=== PATIENT | female | born 1960 | race Caucasian/White ===

== ENCOUNTER 2023-09-27 06:28 | Outpatient (CLI) | payer MEDICAID | END 2023-09-27 06:29 | disposition critical access hospital (66) | LOC: EMS 06:28 | DX: R06.03 Acute respiratory distress (principal); R05.9 Cough, unspecified; R11.2 Nausea with vomiting, unspecified | CPT/HCPCS: A0425; A0427; A0999 ==

== ENCOUNTER 2023-09-27 06:47 | Inpatient (IN) | payer MEDICAID ==
[2023-09-27] MEDS ORDERED: methylPREDNISolone SUCCINATE 125 MG/2 ML VIAL IVP STA (06:55)
[2023-09-27] MEDS ORDERED: IPRATROPIUM/ALBUTEROL 3 ML NEB INH STA (06:55)
[2023-09-27] MEDS ORDERED: cefTRIAXone 1 GM in SODIUM CHLORIDE 0.9% MINIBAG 100 ML IV STA (06:56)
[2023-09-27] MEDS ORDERED: AZITHROMYCIN INJ 500 MG in SODIUM CHLORIDE 0.9% 250 ML IV STA (06:56)
[2023-09-27 07:08] LABS: BASOPHILS % (AUTO) 0.3 %; HCT - HEMATOCRIT 39.2 % (37.0-47.0); HGB - HEMOGLOBIN 12.8 g/dL (12.0-16.0); LYMPHOCYTES # (AUTO) 1.2 10^3/uL (1.5-3.5); LYMPHOCYTES % (AUTO) 7.7 %; MEAN CORPUSCULAR HEMOGLOBIN 27.8 pg (27.0-31.0); MEAN CORPUSCULAR HGB CONC 32.7 g/dL (32.0-36.0); MEAN PLATELET VOLUME 10.6 fL (7.9-10.8); MONOCYTES # (AUTO) 1.1 10^3/uL (0.0-1.0); MONOCYTES % (AUTO) 7.1 %; NEUTROPHILS # (AUTO) 12.8 10^3/uL (1.5-6.6); NEUTROPHILS % (AUTO) 84.4 %; PLT - PLATELET COUNT 240 10^3/uL (130-450); RED BLOOD COUNT 4.61 10^6/uL (4.20-5.40); RED CELL DISTRIBUTION WIDTH 15.1 % (12.0-15.0); WHITE BLOOD COUNT 15.1 x10^3/uL (4.8-10.8)
--- NOTE | 2023-09-27 07:10 | ED Physician Documentation ---
PD HPI DYSPNEA - Stated complaint Stated Complaint: SOA - Chief complaint Chief Complaint: Resp - History obtained from History obtained from: Patient - History of Present Illness Timing - onset: How many weeks ago (1) Timing - onset during: Light activity, Other (coughing) Timing - duration: Weeks (1) Timing - details: Gradual onset, Still present Inciting event(s): URI (Patient states she had had fatigue, muscle aches, chills and cough along with congestion for the past week. She states seen at [facility] and had chest x-ray. She was prescribed albuterol and prednisone without antibiotics. She is not sure if they thought she had pneumonia. Increasing cough.) Improved by: Rest. No: Sitting up Worsened by: Exertion, Coughing Associated symptoms: Fever, Cough, Wheezing. No: Hemoptysis, Bilateral edema Similar symptoms before: Has not had sx before Recently seen: Emergency Dept (she states seen [facility] for this with CXR. [facility] most recent visit record was for back pain with some symptoms of URI/cough on 09/07/23. Sats 98% RA on that report. CXR was done without any pneumonia. Normal CXR by report. Rx Prednisone and Flexeril. no inhaler.) Review of Systems Constitutional: reports: Chills, Myalgias, Fatigue Nose: reports: Congestion Cardiac: denies: Chest pain / pressure, Pedal edema, Calf pain Respiratory: reports: Dyspnea, Cough, Wheezing GI: denies: Abdominal Pain, Vomiting, Diarrhea Skin: denies: Rash Neurologic: reports: Generalized weakness PD PAST MEDICAL HISTORY - Past Medical History Past Medical History: Yes Cardiovascular: None Respiratory: Pneumonia, Other (no asthma nor COPD formal Dx but pt states uses MDI at times. 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 - Present Medications Home Medications: Ambulatory Orders Medication Instructions Recorded Confirmed Fluoxetine HCl [Prozac] 40 mg PO DAILY 09/27/23 09/27/23 - Allergies Allergies/Adverse Reactions: Allergies Allergy/AdvReac Type Severity Reaction Status Date / Time No Known Drug Allergies Allergy Verified 09/27/23 06:59 - Social History Does the pt smoke?: No Smoking Status: Never smoker Does the pt drink ETOH?: No Does the pt have substance abuse?: Yes Substance Use and Type: Marijuana - Immunizations Immunizations are current?: Yes - POLST Patient has POLST: No PD ED PE NORMAL - Vitals Vital signs reviewed: Yes - General General: Alert and oriented X 3, Well developed/nourished, Other (some increased work of breathing. Partial sentence dyspnea. ) - HEENT HEENT: Pharynx benign - Neck Neck: Supple, no meningeal sign, No adenopathy - Cardiac Cardiac: RRR (regular but tachycardic.) - Respiratory Respiratory: No: Clear bilaterally (diffuse wheezing and prolonged exp phase. ) - Abdomen Abdomen: Soft, Non tender - Back Back: No CVA TTP - Derm Derm: Normal color, Warm and dry - Extremities Extremities: Normal ROM s pain, No edema, No calf tenderness / cord - Neuro Neuro: Alert and oriented X 3, No motor deficit, Normal speech Results - Vitals Vitals: Vital Signs - 24 hr 09/27/23 09/27/23 09/27/23 06:47 07:21 07:30 Temperature 36.3 C L Heart Rate 101 H 90 105 H Respiratory 24 18 25 H Rate Blood Pressure 144/67 H 100/83 H 130/72 O2 Saturation 96 97 89 L If not protocol : Oxygen Flow, liters/minute 09/27/23 09/27/23 09/27/23 08:00 08:30 09:11 Temperature 36.5 C Heart Rate 90 87 87 Respiratory 25 H 18 18 Rate Blood Pressure 130/72 129/64 144/59 H O2 Saturation 86 L 95 97 If not protocol 2 4 : Oxygen Flow, liters/minute Oxygen O2 Source Nasal cannula Oxygen Flow Rate 4 - Labs Labs: Laboratory Tests 09/27/23 09/27/23 09/27/23 06:55 06:55 06:55 WBC 15.1 H RBC 4.61 Hgb 12.8 Hct 39.2 MCV 85.0 MCH 27.8 MCHC 32.7 RDW 15.1 H Plt Count 240 MPV 10.6 Neut # (Auto) 12.8 H Lymph # (Auto) 1.2 L [place] # (Auto) 1.1 H Eos # (Auto) 0.0 Baso # (Auto) 0.0 Absolute Nucleated RBC 0.00 Nucleated RBC % 0.0 PT 12.0 INR 1.1 Sodium 139 Potassium 3.2 L Chloride 103 Carbon Dioxide 26 Anion Gap 10.0 BUN 16 Creatinine 0.7 Estimated GFR (MDRD) 85 L Glucose 119 H Lactic Acid Calcium 9.8 Magnesium 1.6 L Total Bilirubin 0.5 AST 11 ALT 15 Alkaline Phosphatase 73 Troponin I High Sens 5.9 B-Natriuretic Peptide Total Protein 6.7 Albumin 3.9 Globulin 2.8 Albumin/Globulin Ratio 1.4 Nasal Adenovirus (PCR) Nasal B. parapertussis DNA (PCR) Nasal Coronavir 229E PCR Nasal Coronavir HKU1 PCR Nasal Coronavir NL63 PCR Nasal Coronavir OC43 PCR Nasal Enterovir/Rhinovir PCR Nasal Influenza B PCR Nasal Influenza A PCR Nasal Parainfluen 1 PCR Nasal Parainfluen 2 PCR Nasal Parainfluen 3 PCR Nasal Parainfluen 4 PCR Nasal RSV (PCR) Nasal B.pertussis DNA PCR Nasal C.pneumoniae (PCR) Jose Rafael Human Metapneumo PCR Nasal M.pneumoniae (PCR) Nasal SARS-CoV-2 (PCR) 09/27/23 09/27/23 09/27/23 06:55 07:00 07:40 WBC RBC Hgb Hct MCV MCH MCHC RDW Plt Count MPV Neut # (Auto) Lymph # (Auto) [place] # (Auto) Eos # (Auto) Baso # (Auto) Absolute Nucleated RBC Nucleated RBC % PT INR Sodium Potassium Chloride Carbon Dioxide Anion Gap BUN Creatinine Estimated GFR (MDRD) Glucose Lactic Acid 1.7 Calcium Magnesium Total Bilirubin AST ALT Alkaline Phosphatase Troponin I High Sens B-Natriuretic Peptide 87 Total Protein Albumin Globulin Albumin/Globulin Ratio Nasal Adenovirus (PCR) NOT DETECTED Nasal B. parapertussis DNA (PCR) NOT DETECTED Nasal Coronavir 229E PCR NOT DETECTED Nasal Coronavir HKU1 PCR NOT DETECTED Nasal Coronavir NL63 PCR NOT DETECTED Nasal Coronavir OC43 PCR NOT DETECTED Nasal Enterovir/Rhinovir PCR NOT DETECTED Nasal Influenza B PCR NOT DETECTED Nasal Influenza A PCR NOT DETECTED Nasal Parainfluen 1 PCR NOT DETECTED Nasal Parainfluen 2 PCR NOT DETECTED Nasal Parainfluen 3 PCR NOT DETECTED Nasal Parainfluen 4 PCR NOT DETECTED Nasal RSV (PCR) NOT DETECTED Nasal B.pertussis DNA PCR NOT DETECTED Nasal C.pneumoniae (PCR) NOT DETECTED Jose Rafael Human Metapneumo PCR NOT DETECTED Nasal M.pneumoniae (PCR) NOT DETECTED Nasal SARS-CoV-2 (PCR) NOT DETECTED - Rads (name of study) chest xray Relevant Findings:: Prelim report reviewed, EMP independent interpretation of test (platelike infiltrate left fissure, adn rounded infiltrate right middle lobe. No effusions. No PTX. ) chest CT Relevant Findings:: Prelim report reviewed, EMP independent interpretation of test (rounded pneumonia right , and linear infiltrate left. No mass noted per se. No abscess. followup in few months for resolution recommended. ) PD Medical Decision Making - ED course Complexity details: reviewed results (infiltrates right and left, with rounded appearance right. New since 09/07/23 by CXR report from then. Presume not a mass, but can get CT to better eval and exclude abscess/etc. ), re-evaluated patient (After nebulizer treatments, the patient is breathing more comfortably. She is able to talk in sentences. There is still some expiratory wheezing diffusely. Some coarse sounds right lung heard now 2. On room air she is still 88 to 89%. Adequate on 2 L nasal cannula.), considered differential (Presents with progressively worsening dyspnea cough and general illness feeling. Pr esumed upper respiratory infection now likely developing into pneumonia. Wheezing and hypoxic on presentation.), d/w patient ED course: Having cough and trouble breathing increasing over 2 and half to 3 weeks. Negative chest x-ray on 09/07/23. Has had increased cough with trouble breathing over the last week in particular much more the last couple of days. Hypoxic on presentation and wheezy with difficulty breathing. The breathing pattern has improved with nebulizer treatments. Pneumonia noted on chest x-ray and CT scan showed infiltrates without masses or abscess. Started on antibiotics for pneumonia. She was given Zithromax and Rocephin. The patient remained hypoxic on room air after the initial treatments and was 88%. She is sufficiently oxygenated on just 2 L nasal cannula. I talked with the hospitalist who agrees to place the patient in the hospital. We did obtain ER report from [facility] in [place] from 09/07/2023 and I referenced that for vital signs which showed 98% sats and a normal heart rate and a documented of clear chest x-ray. Departure - Departure Disposition: [facility] DC/Xfer Clinical Impression: Acute pneumonia, Hypoxia, Dyspnea, Exacerbation of reactive airway disease Condition: Stable Record reviewed to determine appropriate education?: Yes Forms: PCP List
[2023-09-27 07:15] LABS: INR 1.1 (0.8-1.2)
[2023-09-27 07:22] LABS: ALBUMIN 3.9 g/dL (3.2-5.5); ALBUMIN/GLOBULIN RATIO 1.4 (1.0-2.2); BILIRUBIN,TOTAL 0.5 mg/dL (0.2-1.0); CALCIUM 9.8 mg/dL (8.5-10.3); CREATININE 0.7 mg/dL (0.6-1.3); MAGNESIUM 1.6 mg/dL (1.7-2.3); POTASSIUM 3.2 mmol/L (3.5-4.5); TOTAL PROTEIN 6.7 g/dL (6.4-8.9); TROPONIN I HIGH SENSITIVITY 5.9 ng/L (2.3-14.8)
[2023-09-27] MEDS ORDERED: ONDANSETRON 4 MG/2 ML VIAL IVP STA (07:50)
[2023-09-27] MEDS ORDERED: fentaNYL 100 MCG/2 ML VIAL IVP STA (07:50)
[2023-09-27 07:58] LABS: B. PARAPERTUSSIS- RESP PCR PAN NOT DETECTED; B. PERTUSSIS- RESP PCR PANEL NOT DETECTED; C. PNEUMONIAE- RESP PCR PANEL NOT DETECTED; CORONAVIRUS 229E-RESP PCR NOT DETECTED; CORONAVIRUS HKU1-RESP PCR NOT DETECTED; CORONAVIRUS NL63-RESP PCR NOT DETECTED; CORONAVIRUS OC43-RESP PCR NOT DETECTED; HUMAN METAPNEUMOVIRUS NOT DETECTED; INFLUENZA A- RESP PCR PANEL NOT DETECTED; INFLUENZA B - RESP PCR PANEL NOT DETECTED; M. PNEUMONIAE- RESP PCR PANEL NOT DETECTED; PARAINFLUENZA VIRUS 1 NOT DETECTED; PARAINFLUENZA VIRUS 2 NOT DETECTED; PARAINFLUENZA VIRUS 3 NOT DETECTED; PARAINFLUENZA VIRUS 4 NOT DETECTED; RHINOVIRUS/ENTEROVIRUS NOT DETECTED; RSV- RESP PCR PANEL NOT DETECTED; SARS-CoV-2 -RESP PCR PANEL NOT DETECTED
[2023-09-27] MEDS: KETOROLAC 15 MG/ML VIAL IVP PRN (07:59)
--- NOTE | 2023-09-27 08:12 | XRAY Report ---
PROCEDURE: Chest 1 View X-Ray INDICATIONS: dyspnea, wheezing, hypoxia TECHNIQUE: One view of the chest was acquired. COMPARISON: None. FINDINGS: Surgical changes and devices: None. Lungs and pleura: No pleural effusions or pneumothorax. There is a density in the right perihilar re gion measuring 5.4 cm which is highly suspicious for a bronchogenic malignancy. Also possible is roun d pneumonia. Mediastinum: Mediastinal contours appear normal. Heart size is normal. Bones and chest wall: No suspicious bony lesions. Overlying soft tissues appear unremarkable. IMPRESSION: Probable 5.4 cm maximum diameter right perihilar mass. Also possible is a rounded pneumonia. Recommend CT chest with contrast versus close follow-up with serial plain films. Findings are concordant with preliminary interpretation provided by [facility]. Reviewed by: Pedro Pablo Carbone MD on 09/27/2023 8:10 AM [facility] Approved by: Pedro Pablo Carbone MD on 09/27/2023 8:10 AM [facility] Station ID: [id number]
[2023-09-27] MEDS ORDERED: ALBUTEROL NEB 2.5 MG/3 ML INH STA (08:19)
[2023-09-27] MEDS ORDERED: POTASSIUM BICARB 25 MEQ TABLET PO STA (09:11)
[2023-09-27] MEDS ORDERED: MAGNESIUM OXIDE 400 MG TABLET PO STA (09:11)
[2023-09-27] MEDS ORDERED: SODIUM CHLORIDE FLUSH 0.9% 10 ML SYRINGE IVP PRN (09:22)
--- NOTE | 2023-09-27 09:22 | CT Report ---
PROCEDURE: CHEST W INDICATIONS: pneumonia vs mass on CXR CONTRAST: 100ml omni 300 TECHNIQUE: After the administration of intravenous contrast, 1 mm axial images were acquired from the pulmonary apices through the posterior costophrenic angles. Axial 5 mm soft tissue kernel reconstructions were performed as well as 8 mm axial MIP and coronal and sagittal 5 mm reformations. For radiation dose reduction, the following was used: automated exposure control, adjustment of mA and/or kV according to patient size. COMPARISON: Plain films dated 09/27/2023 FINDINGS: Image quality: Excellent. Lungs and pleura: Severe patchy airspace opacity within the superior segment right lower lobe, as wel l as the medial basilar aspect of the right lower lobe. Moderate airspace opacity within the left upp er lobe posteriorly as well as the perihilar aspect of the left lower lobe. No pleural effusions. No pneumothorax. No suspicious pulmonary nodules which require follow up. Mediastinum: Heart size is normal. Calcification of the coronary vasculature is present. No pericardi al effusion. No large vessel abnormality. Right infrahilar adenopathy measuring 21 mm short axis. 10 mm short axis subcarinal adenopathy. Chest wall and lower neck: Thyroid is unremarkable. No axillary or supraclavicular adenopathy by size . Bones: No aggressive osseous abnormality. Upper Abdomen: Unremarkable. IMPRESSION: 1. Bilateral pneumonia with presumably reactive mediastinal and hilar adenopathy. Follow-up IV contra st-enhanced chest CT in 3 months is recommended to ensure resolution and to exclude underlying neopla sm. 2. Coronary artery disease. Reviewed by: Theodora Valencia MD on 09/27/2023 9:20 AM [facility] Approved by: Theodora Valencia MD on 09/27/2023 9:20 AM [facility] Station ID: [id number]
[2023-09-27] MEDS ORDERED: IPRATROPIUM/ALBUTEROL 3 ML NEB INH PRN (09:24)
--- NOTE | 2023-09-27 09:31 | HISTORY & PHYSICAL EXAMINATION ---
Chief Complaint - Chief Complaint Chief Complaint: Cough, severe shortness of breath, chest congestion History of Present Illness - Admitted From Admitted From:: Home - History Obtained From Records Reviewed: [facility] History obtained from: Patient Exam Limitations: None - History of Present Illness HPI Comment/Other: 62-year-old who presented to the emergency room with cough, fatigue, muscle aches, chills and sinus and chest congestion for over a week. She said that she usually does not have asthma. But the cough is associated with wheezing. Every time she laid down to go to bed at night, the coughing spasms be so severe. She started getting sharp stabbing chest pain that started in the front of her chest and radiated straight through to her back. They were fleeting, infrequent but incredibly uncomfortable so she started sleeping upright. She was seen at [facility] when it first started and had a chest x-ray. She was given albuterol and prednisone without antibiotics. Chest x-ray was read as clear. She now presents back to our emergency room because she is not getting any better. The coughing continues with minimal activity inciting it. She continues to have intermittent uncontrollable cough. Sinus and chest congestion. Profound fatigue. Wheezing.No hemoptysis. No leg edema. Our emergency room provider saw her and she was afebrile, slightly tachycardic at 101, and requiring 2 L nasal cannula to maintain an O2 sat. Exam was mainly positive for increased work of breathing and partial sentence dyspnea. She had diffuse wheezing and prolonged and expiratory phase. Her CMP was normal except for a random glucose of 119, and potassium was 3.2. Her lactic acid was normal at 1.7. Her CBC had an elevated white cell count of 15.1 (in the context of prednisone being given and her infection). PCR panel for viruses was negative. Initial chest x-ray read as a perihilar infiltrate. Possible malignancy. As such a CT was done and she has severe patchy airspace opacity within the s uperior segment of the right lower lobe as well as the medial basilar aspect of the right lower lobe. Moderate airspace opacity within the left upper lobe posteriorly and perihilar aspect of the left lower lobe. No effusions. No pneumothorax. She has right infrahilar adenopathy. Coronary calcification. In the ER treatment has consisted of DuoNeb, azithromycin, ceftriaxone. Her respiratory rate has gone down to 18 from 25. Her O2 sat is still 97% with 4 L. Her heart rate is 87. After discussion with the ER provider, I am now admitting the patient to inpatient status. It is doubtful that she will recover in 1 midnight. In meeting the patient to do a review of systems the following were discussed: When 2019 came around, she just had a lot of depression. She gained a lot of weight. She was swimming every day in [employer] and then just stopped going. Not because of COVID but because she lost the energy and desire to do so. She is deaf in her left ear. Lifelong swimmer [place] the [place] [facility] and she was getting chronic ear infections so her left ear is affected. She does not have allergies, sinusitis. She has normal vision loss of aging. No glaucoma. She denies any problems with swallowing, teeth problems She has no history of asthma, coughing like this. She was diagnosed with severe obstructive sleep apnea. On a scale of 1-10, "I am a 15". She still does not have her sleep mass. That was identified recently. Positive stabbing chest pain, positive orthopnea, no leg edema. Severe dyspnea on exertion all started this last week. No phlegm production. No history of ulcers, indigestion, diarrhea Chronic sciatica. Right leg shakes sometimes. Knees and hips just ache. No new skin lesions. No history of skin cancer Denies polydipsia, polyuria, polyphagia. Depression is a problem. Much worse in 2020 but seems to be better this year Starting to lose her memory. 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 She worries about that because mom has dementia. But no history of seizures, syncope, focal neurological deficits She says this is the first time she is ever been hospitalized for severe illness. She was hospitalized for couple of days for sciatica years ago. She was hospitalized for the of her 3 children. But she has never been hospitalized for a medical reason like this. History - Past Medical History Cardiovascular: reports: None Respiratory: reports: Pneumonia, Other (no asthma nor COPD. 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 Mom has dementia and is cared for by her sister. Dad is healthy. 1 sister completely healthy, 1 brother morbidly overweight at over 430 pounds of complications of diabetes, obesity, bladder cancer, etc. 3 children. 1 daughter has syringomyelia. Was in a wheelchair and has been able to walk after 3 years of being wheelchair confined. On a new [facility] Living arrangement: At home Living Situation: With family Social History Notes: She moved to [facility] from [place] in 2017. She came here to help her daughter. Daughter was diagnosed with a syringomyelia and needed help taking care of her kids. She is continue to live here. She lives in her own home and now son and [id number] live with her. They have 2 kids. 1 kid is autistic. She never smoked tobacco. But does smoke weed on a daily basis. She does not like to drink because it just makes her nauseated and puke within 1 drink. 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 No other recreational substance abuse. - Substance History Use: Uses substance without health or social issues: Cannabis - POLST Patient has POLST: No Meds/Allgy - Home Medications Home Medications: Ambulatory Orders Medication Instructions Recorded Confirmed Fluoxetine HCl [Prozac] 40 mg PO DAILY 09/27/23 09/27/23 - Allergies Allergies/Adverse Reactions: Allergies Allergy/AdvReac Type Severity Reaction Status Date / Time No Known Drug Allergies Allergy Verified 09/27/23 06:59 Review of Systems - Other Findings Other Findings: 13 point review of systems in HPI Prior Level of Functionality: Until this illness this week, she is completely independent with activities of daily living. Cleans house, does laundry, cooks, grocery shops, drives a car, and helps both her son and daughter with their kids, her grandkids. Exam - Vital Signs Reviewed Vital Signs: Yes Vital Signs: Vital Signs x48h Temp Pulse Resp BP Pulse Ox O2 Flow Rate 09/27/23 09:11 36.5 C 87 18 144/59 H 97 4 09/27/23 08:30 87 18 129/64 95 09/27/23 08:00 90 25 H 130/72 86 L 2 09/27/23 07:30 105 H 25 H 130/72 89 L 09/27/23 07:21 90 18 100/83 H 97 09/27/23 06:47 36.3 C L 101 H 24 144/67 H 96 - Physical Exam General Appearance: positive: Moderate distress (From cough, wheezing once I wa ke her up. It took me 2 shakes of the shoulder to wake her up), Other (Morbidly overweight white female who looks older than stated age. Markedly fatigued, nasal congestion, sleeping upright in the chair in her room. Does not want to lay in bed.) Eyes Bilateral: positive: PERRL, EOMI ENT: positive: Pharynx nml Neck: positive: No JVD. negative: Stiff neck Respiratory: positive: Wheezes (Bilaterally in all lung flores. No use of accessory muscles. No sternocleidomastoid emphasis), Rhonchi (Congested cough. Nasal voice) Cardiovascular: positive: Regular rate & rhythm Peripheral Pulses: positive: 1+ Abdomen: positive: Non-tender, Nml bowel sounds, No distention, Other (Unable to assess for organomegaly due to large pannus) Skin: positive: Warm, Dry Extremities: positive: Full ROM, No pedal edema Neurologic/Psychiatric: positive: Oriented x3, CN's nml (2-12), Motor nml Conclusion/Plan - Problem List (1) Multifocal pneumonia Conclusion/Plan: This is a patient has obstructive sleep apnea, fatigue for 3 years now, and I wonder if she could be aspirating. However, this is the first time she is ever been sick like this. No history of asthma. Her PCR panel is negative. CT confirms severe patchy airspace opacity within the superior segments of the rig ht lower lobe as well as medial basilar aspect of the right lower lobe. Moderate airspace opacity within the left upper lobe posteriorly as well as the perihilar aspect of the left lower lobe. : Inpatient status Blood cultures have already been done in the emergency room I have ordered mycoplasma titers Rocephin and azithromycin have been dosed in the ER and I will resume azithromycin for 2 more doses daily. I will resume Rocephin for 4 more doses daily. If she does not clinically improve within the next 24 to 48 hours, I would suggest adding either clindamycin or Flagyl. (2) Hypoxia Conclusion/Plan: Significant airspace disease. She is morbidly obese, today entry. She definitely gives a history of an acute episode resulting in this asthma, chest congestion and a picture of multifocal pneumonia. I would also suggest a CT of the chest with angiogram in the next 24 to 48 hours if she does not improve. In the meantime she will get nasal cannula oxygen. She is a full code. Would need to go to the ICU for BiPAP if she deteriorates further (3) Exacerbation of reactive airway disease Conclusion/Plan: She does not have a history of asthma. She says she is never wheezed like this before. She is a non-smoker. Mycoplasma is associated with wheezing. Aspiration is associated with wheezing. Congestive heart failure is associated with wheezing. Certain medications are associated with wheezing. RSV is associated with wheezing but she does not have a positive viral panel. Plan: Continue to treat with DuoNeb on a 4 times daily schedule Albuterol every 2 as needed Solu-Medrol Robitussin AC as needed Qualifiers: Asthma severity: severe (4) Obstructive sleep apnea Conclusion/Plan: She does not have her mask yet. Currently sleeping upright in the room here. I would suggest that she elevate her legs while sleeping in the reclining chair. There is no mass to bring her from home. If she decompensates severely, ICU wi th BiPAP would be in order or trilogy. (5) Morbid obesity Conclusion/Plan: Associated with obstructive sleep apnea, depression, lethargy and even more weight gain. I told her that the next time she sees her primary care provider with [facility], to consider SLG P2 inhibitor. (6) Memory change Conclusion/Plan: A lot of this started in 2020. When she became sedentary, depressed. The argument could be made that she became depressed and as such the cascade of events of weight gain, less exercise, obstructive sleep apnea all started. Or the obstructive sleep apnea could have caused the lethargy, and the weight gain. In any case this was associated with memory loss. I am hoping that if she can get her obstructive sleep apnea under control, weight loss goals achieved, there is some of this lethargy and memory fog can be alleviated (7) Hypokalemia Conclusion/Plan: She was given potassium and magnesium supplementation in the ER. Will check levels tomorrow. - Lab Results Lab results reviewed: Yes Fish Bones: 09/27/23 06:55 09/27/23 06:55 - Diagnostic Imaging Results Diagnostic Imaging Results: positive: Final report reviewed - EKG Results EKG Interpreted Independently: No Core Measures - Anticipated LOS I expect patient to be DC'd or transferred within 96 hours.: Yes - DVT/VTE - Prophylaxis VTE/DVT Prophylaxis med ordered at admit?: Yes
[2023-09-27] MEDS: FLUoxetine 10 MG CAPSULE PO SCH (10:57)
[2023-09-27] MEDS: SODIUM CHLORIDE 0.9% 1,000 ML IV SCH ×2 (10:57→21:37)
[2023-09-27] MEDS: ENOXAPARIN 40 MG/0.4 ML SYRINGE SUBQ SCH (10:57)
--- NOTE | 2023-09-27 11:15 | PHARMACY PROGRESS NOTE ---
- Best Possible Medication History Admit Date and Time: 09/27/23921 Processed by: Pharmacy Medication History completed: Yes Patient Interview: Completed (Willa Patel, [employer]) Secondary Source(s): Insurance records As the person ultimately responsible for medication therapy, providers are able to order a medication from an existing home medication list in [facility] via the "Reconcile Routine" prior to Confirmation of that medication by manager technical support. Such practice is discouraged except when the physician, in their clinical judgment, deems that a medical need exists for a medication without regard to previous use.
[2023-09-27] MEDS ORDERED: iohexoL-300 100 ML VIAL IVP ONE (11:23)
[2023-09-27] MEDS: SACCHAROMYCES BOULARDII 250 MG CAPSULE PO SCH (16:53)
[2023-09-27] MEDS: SODIUM CHLORIDE FLUSH 0.9% 10 ML SYRINGE IVP SCH (16:54)
[2023-09-27] MEDS ORDERED: ALBUTEROL NEB 2.5 MG/3 ML INH PRN (19:13)
[2023-09-27] MEDS: methylPREDNISolone SUCCINATE 40 MG/ML VIAL IVP SCH (21:37)
[2023-09-28] MEDS: ACETAMINOPHEN 325 MG TABLET PO PRN ×3 (00:04→20:20)
[2023-09-28] MEDS: SODIUM CHLORIDE FLUSH 0.9% 10 ML SYRINGE IVP SCH ×3 (00:04→16:24)
[2023-09-28] MEDS: ONDANSETRON ODT 4 MG TABLET TL PRN ×3 (00:10→22:30)
[2023-09-28] MEDS: guaiFENesin/CODEINE 5 ML UDC PO PRN ×2 (05:05→20:20)
[2023-09-28] MEDS: KETOROLAC 15 MG/ML VIAL IVP PRN ×2 (05:06→16:24)
[2023-09-28 05:26] LABS: BASOPHILS % (AUTO) 0.3 %; HCT - HEMATOCRIT 36.9 % (37.0-47.0); HGB - HEMOGLOBIN 11.6 g/dL (12.0-16.0); LYMPHOCYTES # (AUTO) 0.9 10^3/uL (1.5-3.5); LYMPHOCYTES % (AUTO) 5.8 %; MEAN CORPUSCULAR HEMOGLOBIN 27.4 pg (27.0-31.0); MEAN CORPUSCULAR HGB CONC 31.4 g/dL (32.0-36.0); MEAN PLATELET VOLUME 11.6 fL (7.9-10.8); NEUTROPHILS # (AUTO) 13.9 10^3/uL (1.5-6.6); NEUTROPHILS % (AUTO) 87.6 %; PLT - PLATELET COUNT 234 10^3/uL (130-450); RED BLOOD COUNT 4.24 10^6/uL (4.20-5.40); RED CELL DISTRIBUTION WIDTH 15.4 % (12.0-15.0); WHITE BLOOD COUNT 15.8 x10^3/uL (4.8-10.8)
[2023-09-28 05:39] LABS: CALCIUM 9.6 mg/dL (8.5-10.3); CREATININE 0.6 mg/dL (0.6-1.3); MAGNESIUM 2.1 mg/dL (1.7-2.3); POTASSIUM 4.6 mmol/L (3.5-4.5)
[2023-09-28] MEDS: methylPREDNISolone SUCCINATE 40 MG/ML VIAL IVP SCH ×2 (06:41→14:18)
[2023-09-28] MEDS: IPRATROPIUM/ALBUTEROL 3 ML NEB INH SCH ×4 (06:49→19:24)
[2023-09-28] MEDS: SACCHAROMYCES BOULARDII 250 MG CAPSULE PO SCH ×2 (07:45→16:24)
[2023-09-28] MEDS: FLUoxetine 10 MG CAPSULE PO SCH (08:24)
[2023-09-28] MEDS: cefTRIAXone 1 GM in SODIUM CHLORIDE 0.9% MINIBAG 100 ML IV SCH (08:24)
[2023-09-28] MEDS: ENOXAPARIN 40 MG/0.4 ML SYRINGE SUBQ SCH (08:26)
[2023-09-28] MEDS: AZITHROMYCIN INJ 500 MG in SODIUM CHLORIDE 0.9% 250 ML IV SCH (10:26)
[2023-09-28] MEDS: oxyCODONE 5 MG TABLET PO PRN ×2 (11:52→22:42)
--- NOTE | 2023-09-28 19:08 | PROVIDER PROGRESS NOTE ---
Assessment/Plan - Problem List (1) Multifocal pneumonia Assessment/Plan: This is a patient has obstructive sleep apnea, fatigue for 3 years now, and we wonder if she could be aspirating. However, this is the first time she has ever been sick like this. No history of asthma. Her PCR panel is negative. CT confirms severe patchy airspace opacity within the superior segments of the right lower lobe as well as medial basilar aspect of the right lower lobe, moderate airspace opacity within the left upper lobe posteriorly as well as the perihilar aspect of the left lower lobe. Plan Cont Rocephin (5 day course planned) and Azithromycin (1500mg total dose) If she does not clinically improve within the next 24 to 48 hours, sherrill add either clindamycin or Flagyl to cover anaerobes from aspiration. (2) Acute resp failure with hypoxia Conclusion/Plan: Significant airspace disease seen on imaging. She definitely gives a history of an acute episode resulting in an asthmatic exacerbation, chest congestion and a picture of multifocal pneumonia. Plan: Cont suppl nasal cannula oxygen. She would need to go to the ICU for BiPAP if she deteriorates (3) Exacerbation of reactive airway disease Conclusion/Plan: She does not have a history of asthma. But her brother and her sister have diagnosed asthma. She says she has never wheezed like this before. She is a non- smoker. Mycoplasma is associated with wheezing. Aspiration is associated with wheezing. Congestive heart failure is associated with wheezing. Certain medi cations are associated with wheezing. RSV is associated with wheezing but she does not have a positive viral panel. Plan: Continue to treat with DuoNeb on a 4 times daily schedule Albuterol every 2h as needed Solu-Medrol iv to continue Robitussin AC as needed (4) Obstructive sleep apnea Conclusion/Plan: SCOTT was recently diagnosed and she does not have her mask yet. She is currently sleeping upright in the room here and leg elevation if sleeping in the recliner, was advised. If she decompensates severely, ICU with BiPAP would be in order or trilogy. (5) Obesity Conclusion/Plan: Her BMI is 33.7. This can be adding to her obstructive sleep apnea, depression, lethargy and even more weight gain. I told her that the next time she sees her primary care provider with [place] [facility], to consider SLG P2 inhibitor, to help with wt loss. (6) Memory change Conclusion/Plan: A lot of this started in 2019, when she became sedentary, depressed. Possibly she became depressed and as such the cascade of events followed of weight gain, less exercise, and obstructive sleep apnea developed. Or the obstructive sleep apnea could have caused the lethargy, and the weight gain. In any case this was associated with memory loss. I am hoping that if she can get her obstructive sleep apnea under control, weight loss goals achieved, there is some of this lethargy and memory fog can be alleviated (7) Hypokalemia Conclusion/Plan: She was given potassium and magnesium supplementation in the ER. Will follow levels. - Current Meds Current Meds: Current Medications Generic Name Dose Route Start Last Admin Trade Name Freq PRN Reason Stop Dose Admin Acetaminophen 650 mg 09/27/23 09:22 09/28/23 05:06 Acetaminophen 325 Mg Tablet PO 650 mg Q4HR PRN Administration Pain 1 to 4, or Fever Albuterol/Ipratropium 3 ml 09/28/23 07:00 09/28/23 16:34 Ipratropium/Albuterol 3 Ml Neb INH Not Given RTQID HARSHA Enoxaparin Sodium 40 mg 09/27/23 10:00 09/28/23 08:26 Enoxaparin 40 Mg/0.4 Ml Syringe SUBQ 40 mg DAILY HARSHA Administration Fluoxetine HCl 40 mg 09/27/23 10:00 09/28/23 08:24 Fluoxetine 10 Mg Capsule PO 40 mg DAILY HARSHA Administration Guaifenesin/Codeine Phosphate 5 ml 09/27/23 19:12 09/28/23 05:05 Guaifenesin/Codeine 5 Ml Udc PO 5 ml Q6HR PRN Administration Cough Azithromycin 500 mg/ Sodium 250 mls @ 250 mls/hr 09/28/23 09:00 09/28/23 11:30 Chloride IV 09/29/23 09:59 Infused DAILY HARSHA Infusion Ceftriaxone Sodium 1 gm/ 100 mls @ 200 mls/hr 09/28/23 09:00 09/28/23 08:55 Sodium Chloride IV 10/01/23 09:29 Infused DAILY HARSHA Infusion Ketorolac Tromethamine 15 mg 09/27/23 07:50 09/28/23 16:24 Ketorolac 15 Mg/Ml Vial IVP 10/02/23 07:49 15 mg Q6HR PRN Administration Severe Pain (Level 7-10) Ondansetron HCl 4 mg 09/27/23 09:22 09/28/23 07:43 Ondansetron Odt 4 Mg Tablet TL 4 mg Q6HR PRN Administration Nausea / Vomiting Oxycodone HCl 5 mg 09/27/23 09:22 09/28/23 11:52 Oxycodone 5 Mg Tablet PO 5 mg Q4HR PRN Administration Pain 5 to 7 Saccharomyces Boulardii 250 mg 09/27/23 17:00 09/28/23 16:24 Saccharomyces Boulardii 250 Mg Capsule PO 250 mg BIDWM HARSHA Administration Sodium Chloride 10 ml 09/27/23 17:00 09/28/23 16:24 Sodium Chloride Flush 0.9% 10 Ml Syringe IVP 10 ml 0100,0900,1700 HARSHA Administration - Lab Result Fish Bone Diagrams: 09/30/23 05:30 09/30/23 05:30 Subjective - Subjective Patient Reports: Feeling Better (She is not as SOB as at adm, but still has a wet non-productive cough and has wheezing), Shortness of Breath Objective Vital Signs: Vital Signs - 24 hr 09/27/23 09/28/23 09/28/23 21:00 00:00 06:52 Temperature 36.7 C Heart Rate 63 Heart Rate [ 73 Brachial] Respiratory 18 13 Rate Blood Pressure 145/84 H [Left Brachial artery] Blood Pressure [Right Brachial artery] O2 Saturation 97 If not protocol 4 4 : Oxygen Flow, liters/minute 09/28/23 09/28/23 09/28/23 07:32 09:15 10:35 Temperature 36.3 C L Heart Rate Heart Rate [ 62 63 Brachial] Respiratory 20 Rate Blood Pressure 171/91 H 138/73 H [Left Brachial artery] Blood Pressure [Right Brachial artery] O2 Saturation 97 93 If not protocol 4 : Oxygen Flow, liters/minute 09/28/23 09/28/23 09/28/23 11:10 15:29 15:35 Temperature 36.6 C Heart Rate Heart Rate [ 64 Brachial] Respiratory 18 Rate Blood Pressure 171/88 H [Left Brachial artery] Blood Pressure 165/90 H [Right Brachial artery] O2 Saturation 95 94 If not protocol : Oxygen Flow, liters/minute Oxygen O2 Source Room air Oxygen Flow Rate 4 I&O (Last 24 Hrs): Intake and Output Totals x24h 09/26/23 09/27/23 09/28/23 23:59 23:59 23:59 Intake Total 2089 2733.333 Balance 2089 2733.333 General: Alert, Oriented x3 HEENT: Mucous membr. moist/pink, Other (Voice is hoarse) Neck: Supple, No JVD Neuro: Alert, Non Focal Cardiovascular: Regular rate, No murmurs Respiratory: Wheezes (in all lung flores), Rales, Rhonchi Abdomen: Normal bowel sounds, Soft Extremities: No clubbing, Other (Trace pretibial edema) - Results Results: Laboratory Results WBC 15.8 x10^3/uL (4.8-10.8) H 09/28/23 04:51 RBC 4.24 10^6/uL (4.20-5.40) 09/28/23 04:51 Hgb 11.6 g/dL (12.0-16.0) L 09/28/23 04:51 Hct 36.9 % (37.0-47.0) L 09/28/23 04:51 MCV 87.0 fL (81.0-99.0) 09/28/23 04:51 MCH 27.4 pg (27.0-31.0) 09/28/23 04:51 MCHC 31.4 g/dL (32.0-36.0) L 09/28/23 04:51 RDW 15.4 % (12.0-15.0) H 09/28/23 04:51 Plt Count 234 10^3/uL (130-450) 09/28/23 04:51 MPV 11.6 fL (7.9-10.8) H 09/28/23 04:51 Neut # (Auto) 13.9 10^3/uL (1.5-6.6) H 09/28/23 04:51 Lymph # (Auto) 0.9 10^3/uL (1.5-3.5) L 09/28/23 04:51 [place] # (Auto) 1.0 10^3/uL (0.0-1.0) 09/28/23 04:51 Eos # (Auto) 0.0 10^3/uL (0.0-0.7) 09/28/23 04:51 Baso # (Auto) 0.0 10^3/uL (0.0-0.1) 09/28/23 04:51 Absolute Nucleated RBC 0.00 x10^3/uL 09/28/23 04:51 Nucleated RBC % 0.0 /100WBC 09/28/23 04:51 PT 12.0 secs (9.9-12.6) 09/27/23 06:55 INR 1.1 (0.8-1.2) 09/27/23 06:55 Sodium 137 mmol/L (135-145) 09/28/23 04:51 Potassium 4.6 mmol/L (3.5-4.5) H 09/28/23 04:51 Chloride 105 mmol/L (101-111) 09/28/23 04:51 Carbon Dioxide 28 mmol/L (21-32) 09/28/23 04:51 Anion Gap 4.0 (6-13) L 09/28/23 04:51 BUN 15 mg/dL (6-20) 09/28/23 04:51 Creatinine 0.6 mg/dL (0.6-1.3) 09/28/23 04:51 Estimated GFR (MDRD) 101 (>89) 09/28/23 04:51 Glucose 145 mg/dL (74-104) H 09/28/23 04:51 Lactic Acid 1.7 mmol/L (0.5-2.2) 09/27/23 07:40 Calcium 9.6 mg/dL (8.5-10.3) 09/28/23 04:51 Magnesium 2.1 mg/dL (1.7-2.3) 09/28/23 04:51 Total Bilirubin 0.5 mg/dL (0.2-1.0) 09/27/23 06:55 AST 11 IU/L (10-42) 09/27/23 06:55 ALT 15 IU/L (10-60) 09/27/23 06:55 Alkaline Phosphatase 73 IU/L (42-121) 09/27/23 06:55 Troponin I High Sens 5.9 ng/L (2.3-14.8) 09/27/23 06:55 B-Natriuretic Peptide 87 pg/mL (5-100) 09/27/23 06:55 Total Protein 6.7 g/dL (6.4-8.9) 09/27/23 06:55 Albumin 3.9 g/dL (3.2-5.5) 09/27/23 06:55 Globulin 2.8 g/dL (2.1-4.2) 09/27/23 06:55 Albumin/Globulin Ratio 1.4 (1.0-2.2) 09/27/23 06:55 Nasal Adenovirus (PCR) NOT DETECTED 09/27/23 07:00 Nasal B. parapertussis DNA (PCR) NOT DETECTED 09/27/23 07:00 Nasal Coronavir 229E PCR NOT DETECTED 09/27/23 07:00 Nasal Coronavir HKU1 PCR NOT DETECTED 09/27/23 07:00 Nasal Coronavir NL63 PCR NOT DETECTED 09/27/23 07:00 Nasal Coronavir OC43 PCR NOT DETECTED 09/27/23 07:00 Nasal Enterovir/Rhinovir PCR NOT DETECTED 09/27/23 07:00 Nasal Influenza B PCR NOT DETECTED 09/27/23 07:00 Nasal Influenza A PCR NOT DETECTED 09/27/23 07:00 Nasal Parainfluen 1 PCR NOT DETECTED 09/27/23 07:00 Nasal Parainfluen 2 PCR NOT DETECTED 09/27/23 07:00 Nasal Parainfluen 3 PCR NOT DETECTED 09/27/23 07:00 Nasal Parainfluen 4 PCR NOT DETECTED 09/27/23 07:00 Nasal RSV (PCR) NOT DETECTED 09/27/23 07:00 Nasal B.pertussis DNA PCR NOT DETECTED 09/27/23 07:00 Nasal C.pneumoniae (PCR) NOT DETECTED 09/27/23 07:00 Jose Rafael Human Metapneumo PCR NOT DETECTED 09/27/23 07:00 Nasal M.pneumoniae (PCR) NOT DETECTED 09/27/23 07:00 Nasal SARS-CoV-2 (PCR) NOT DETECTED 09/27/23 07:00
[2023-09-29] MEDS: SODIUM CHLORIDE FLUSH 0.9% 10 ML SYRINGE IVP SCH ×3 (00:22→16:56)
[2023-09-29] MEDS: ACETAMINOPHEN 325 MG TABLET PO PRN ×3 (04:17→22:06)
[2023-09-29 05:19] LABS: BASOPHILS % (AUTO) 0.1 %; HCT - HEMATOCRIT 34.7 % (37.0-47.0); LYMPHOCYTES # (AUTO) 1.2 10^3/uL (1.5-3.5); LYMPHOCYTES % (AUTO) 10.4 %; MEAN CORPUSCULAR HEMOGLOBIN 27.7 pg (27.0-31.0); MEAN CORPUSCULAR HGB CONC 31.7 g/dL (32.0-36.0); MEAN CORPUSCULAR VOLUME 87.4 fL (81.0-99.0); MONOCYTES # (AUTO) 0.8 10^3/uL (0.0-1.0); MONOCYTES % (AUTO) 7.3 %; NEUTROPHILS # (AUTO) 9.5 10^3/uL (1.5-6.6); NEUTROPHILS % (AUTO) 81.7 %; PLT - PLATELET COUNT 211 10^3/uL (130-450); RED BLOOD COUNT 3.97 10^6/uL (4.20-5.40); RED CELL DISTRIBUTION WIDTH 15.2 % (12.0-15.0); WHITE BLOOD COUNT 11.6 x10^3/uL (4.8-10.8)
[2023-09-29 05:37] LABS: CALCIUM 9.5 mg/dL (8.5-10.3); CREATININE 0.7 mg/dL (0.6-1.3); POTASSIUM 4.3 mmol/L (3.5-4.5)
[2023-09-29] MEDS: IPRATROPIUM/ALBUTEROL 3 ML NEB INH SCH ×3 (07:40→15:27)
[2023-09-29] MEDS: FLUoxetine 10 MG CAPSULE PO SCH (08:58)
[2023-09-29] MEDS: polyethylene glycoL 3350 17 GM PACKET PO SCH (08:58)
[2023-09-29] MEDS: SACCHAROMYCES BOULARDII 250 MG CAPSULE PO SCH ×2 (08:58→16:56)
[2023-09-29] MEDS: ENOXAPARIN 40 MG/0.4 ML SYRINGE SUBQ SCH (08:58)
[2023-09-29] MEDS: cefTRIAXone 1 GM in SODIUM CHLORIDE 0.9% MINIBAG 100 ML IV SCH (08:59)
[2023-09-29] MEDS: AZITHROMYCIN INJ 500 MG in SODIUM CHLORIDE 0.9% 250 ML IV SCH (10:48)
--- NOTE | 2023-09-29 19:42 | PROVIDER PROGRESS NOTE ---
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 She may be aspirating during her apnea. However, this is the first time she has ever been sick like this. No history of asthma. Her PCR panel is negative. CT confirms severe patchy airspace opacity within the superior segments of the right lower lobe as well as medial basilar aspect of the right lower lobe, moderate airspace opacity within the left upper lobe posteriorly as well as the perihilar aspect of the left lower lobe. She does appear to be improving on current antibx Plan Cont Rocephin (5 day course planned) and Azithromycin (1500mg total dose) (2) Acute resp failure with hypoxia Conclusion/Plan: Significant airspace disease seen on imaging. She definitely gives a history of an acute episode resulting in an asthmatic exacerbation, chest congestion and a picture of multifocal pneumonia. Plan: Cont suppl nasal cannula oxygen. To the ICU for BiPAP if she deteriorates (3) Exacerbation of reactive airway disease Conclusion/Plan: She does not have a history of asthma. But her brother and her sister have diagnosed asthma. She says she has never wheezed like this before. She is a non- smoker. Mycoplasma is associated with wheezing. Aspiration is associated with wheezing. Congestive heart failure is associated with wheezing. Certain medications are associated with wheezing. RSV is associated with wheezing but she does not have a positive viral panel. Plan: Continue to treat with DuoNeb on a 4 times daily schedule Albuterol every 2h as needed Solu-Medrol iv to continue Robitussin AC as needed She should have W/U for asthma as an outpt with PFTs done, I told her today. (4) Obstructive sleep apnea Conclusion/Plan: SCOTT was recently diagnosed and she does not have her mask yet. She is currently sleeping upright in the room here and leg elevation if sleeping in the recliner, was advised. If she decompensates severely, ICU with BiPAP would be in order or trilogy. (5) Obesity Conclusion/Plan: Her BMI is 33.7. This can be adding to her obstructive sleep apnea, depression, lethargy and even more weight gain. I told her that the next time she sees her primary care provider with [place] [facility], to consider SLG P2 inhibitor, to help with wt loss. (6) Memory change Conclusion/Plan: A lot of this started in 2019, when she became sedentary, depressed. Possibly she became depressed and as such the cascade of events followed of weight gain, less exercise, and obstructive sleep apnea developed. Or the obstructive sleep apnea could have caused the lethargy, and the weight gain. In any case this was associated with memory loss. I am hoping that if she can get her obstructive sleep apnea under control, weight loss goals achieved, there is some of this lethargy and memory fog can be alleviated (7) Hypokalemia Conclusion/Plan: She was given potassium and magnesium supplementation in the ER. Will follow levels. - Current Meds Current Meds: Current Medications Generic Name Dose Route Start Last Admin Trade Name Freq PRN Reason Stop Dose Admin Acetaminophen 650 mg 09/27/23 09:22 09/29/23 08:58 Acetaminophen 325 Mg Tablet PO 650 mg Q4HR PRN Administration Pain 1 to 4, or Fever Albuterol/Ipratropium 3 ml 09/28/23 07:00 09/29/23 15:27 Ipratropium/Albuterol 3 Ml Neb INH 3 ml RTQID HARSHA Administration Enoxaparin Sodium 40 mg 09/27/23 10:00 09/29/23 08:58 Enoxaparin 40 Mg/0.4 Ml Syringe SUBQ 40 mg DAILY HARSHA Administration Fluoxetine HCl 40 mg 09/27/23 10:00 09/29/23 08:58 Fluoxetine 10 Mg Capsule PO 40 mg DAILY HARSHA Administration Guaifenesin/Codeine Phosphate 5 ml 09/27/23 19:12 09/28/23 20:20 Guaifenesin/Codeine 5 Ml Udc PO 5 ml Q6HR PRN Administration Cough Ceftriaxone Sodium 1 gm/ 100 mls @ 200 mls/hr 09/28/23 09:00 09/29/23 14:39 Sodium Chloride IV 10/01/23 09:29 Infused DAILY HARSHA Infusion Ketorolac Tromethamine 15 mg 09/27/23 07:50 09/28/23 16:24 Ketorolac 15 Mg/Ml Vial IVP 10/02/23 07:49 15 mg Q6HR PRN Administration Severe Pain (Level 7-10) Ondansetron HCl 4 mg 09/27/23 09:22 09/28/23 22:30 Ondansetron Odt 4 Mg Tablet TL 4 mg Q6HR PRN Administration Nausea / Vomiting Oxycodone HCl 5 mg 09/27/23 09:22 09/28/23 22:42 Oxycodone 5 Mg Tablet PO 5 mg Q4HR PRN Administration Pain 5 to 7 Polyethylene Glycol 17 gm 09/29/23 09:00 09/29/23 08:58 Polyethylene Glycol 3350 17 Gm Packet PO 17 gm DAILY HARSHA Administration Saccharomyces Boulardii 250 mg 09/27/23 17:00 09/29/23 16:56 Saccharomyces Boulardii 250 Mg Capsule PO 250 mg BIDWM HARSHA Administration Sodium Chloride 10 ml 09/27/23 17:00 09/29/23 16:56 Sodium Chloride Flush 0.9% 10 Ml Syringe IVP 10 ml 0100,0900,1700 HARSHA Administration - Lab Result Fish Bone Diagrams: 09/30/23 05:30 09/30/23 05:30 - Additional Planning My Orders: My Active Orders 09/29/23 09:00 polyethylene glycoL 3350 [Miralax] 17 gm PO DAILY Subjective - Subjective Patient Reports: Feeling Better, Shortness of Breath (Still slt SOB, and as cough and hoarsesness) Objective Vital Signs: Vital Signs - 24 hr 09/29/23 09/29/23 09/29/23 00:23 07:41 08:02 Temperature 36.9 C 36.4 C L Heart Rate 20 L Heart Rate [ 64 71 Brachial] Respiratory 16 18 18 Rate Blood Pressure 172/90 H 189/97 H [Right Brachial artery] O2 Saturation 94 92 09/29/23 09/29/23 09/29/23 09:10 15:29 15:46 Temperature 36.7 C Heart Rate 70 Heart Rate [ 73 83 Brachial] Respiratory 20 18 Rate Blood Pressure 165/80 H 157/73 H [Right Brachial artery] O2 Saturation 93 Oxygen O2 Source Room air Oxygen Flow Rate 4 I&O (Last 24 Hrs): Intake and Output Totals x24h 09/27/23 09/28/23 09/29/23 23:59 23:59 23:59 Intake Total 2089 3183.333 1410 Balance 2089 3183.333 1410 General: Alert, Oriented x3, Mild distress (from cough and hoarseness) HEENT: Mucous membr. moist/pink, Other (Voice is hoearse) Neck: Supple, No JVD Neuro: Alert, Non Focal Cardiovascular: Regular rate, No murmurs Respiratory: Wheezes, Rhonchi Abdomen: Soft, No tenderness Extremities: No clubbing, No edema, No tenderness/swelling - Results Results: Laboratory Results WBC 11.6 x10^3/uL (4.8-10.8) H 09/29/23 05:13 RBC 3.97 10^6/uL (4.20-5.40) L 09/29/23 05:13 Hgb 11.0 g/dL (12.0-16.0) L 09/29/23 05:13 Hct 34.7 % (37.0-47.0) L 09/29/23 05:13 MCV 87.4 fL (81.0-99.0) 09/29/23 05:13 MCH 27.7 pg (27.0-31.0) 09/29/23 05:13 MCHC 31.7 g/dL (32.0-36.0) L 09/29/23 05:13 RDW 15.2 % (12.0-15.0) H 09/29/23 05:13 Plt Count 211 10^3/uL (130-450) 09/29/23 05:13 MPV 11.0 fL (7.9-10.8) H 09/29/23 05:13 Neut # (Auto) 9.5 10^3/uL (1.5-6.6) H 09/29/23 05:13 Lymph # (Auto) 1.2 10^3/uL (1.5-3.5) L 09/29/23 05:13 [place] # (Auto) 0.8 10^3/uL (0.0-1.0) 09/29/23 05:13 Eos # (Auto) 0.0 10^3/uL (0.0-0.7) 09/29/23 05:13 Baso # (Auto) 0.0 10^3/uL (0.0-0.1) 09/29/23 05:13 Absolute Nucleated RBC 0.00 x10^3/uL 09/29/23 05:13 Nucleated RBC % 0.0 /100WBC 09/29/23 05:13 PT 12.0 secs (9.9-12.6) 09/27/23 06:55 INR 1.1 (0.8-1.2) 09/27/23 06:55 Sodium 137 mmol/L (135-145) 09/29/23 05:13 Potassium 4.3 mmol/L (3.5-4.5) 09/29/23 05:13 Chloride 104 mmol/L (101-111) 09/29/23 05:13 Carbon Dioxide 29 mmol/L (21-32) 09/29/23 05:13 Anion Gap 4.0 (6-13) L 09/29/23 05:13 BUN 21 mg/dL (6-20) H 09/29/23 05:13 Creatinine 0.7 mg/dL (0.6-1.3) 09/29/23 05:13 Estimated GFR (MDRD) 85 (>89) L 09/29/23 05:13 Glucose 154 mg/dL (74-104) H 09/29/23 05:13 Lactic Acid 1.7 mmol/L (0.5-2.2) 09/27/23 07:40 Calcium 9.5 mg/dL (8.5-10.3) 09/29/23 05:13 Magnesium 2.1 mg/dL (1.7-2.3) 09/28/23 04:51 Total Bilirubin 0.5 mg/dL (0.2-1.0) 09/27/23 06:55 AST 11 IU/L (10-42) 09/27/23 06:55 ALT 15 IU/L (10-60) 09/27/23 06:55 Alkaline Phosphatase 73 IU/L (42-121) 09/27/23 06:55 Troponin I High Sens 5.9 ng/L (2.3-14.8) 09/27/23 06:55 B-Natriuretic Peptide 87 pg/mL (5-100) 09/27/23 06:55 Total Protein 6.7 g/dL (6.4-8.9) 09/27/23 06:55 Albumin 3.9 g/dL (3.2-5.5) 09/27/23 06:55 Globulin 2.8 g/dL (2.1-4.2) 09/27/23 06:55 Albumin/Globulin Ratio 1.4 (1.0-2.2) 09/27/23 06:55 Nasal Adenovirus (PCR) NOT DETECTED 09/27/23 07:00 Nasal B. parapertussis DNA (PCR) NOT DETECTED 09/27/23 07:00 Nasal Coronavir 229E PCR NOT DETECTED 09/27/23 07:00 Nasal Coronavir HKU1 PCR NOT DETECTED 09/27/23 07:00 Nasal Coronavir NL63 PCR NOT DETECTED 12 07:00 Nasal Coronavir OC43 PCR NOT DETECTED 09/27/23 07:00 Nasal Enterovir/Rhinovir PCR NOT DETECTED 09/27/23 07:00 Nasal Influenza B PCR NOT DETECTED 09/27/23 07:00 Nasal Influenza A PCR NOT DETECTED 09/27/23 07:00 Nasal Parainfluen 1 PCR NOT DETECTED 09/27/23 07:00 Nasal Parainfluen 2 PCR NOT DETECTED 09/27/23 07:00 Nasal Parainfluen 3 PCR NOT DETECTED 09/27/23 07:00 Nasal Parainfluen 4 PCR NOT DETECTED 09/27/23 07:00 Nasal RSV (PCR) NOT DETECTED 09/27/23 07:00 Nasal B.pertussis DNA PCR NOT DETECTED 09/27/23 07:00 Nasal C.pneumoniae (PCR) NOT DETECTED 09/27/23 07:00 Jose Rafael Human Metapneumo PCR NOT DETECTED 09/27/23 07:00 Nasal M.pneumoniae (PCR) NOT DETECTED 09/27/23 07:00 Nasal SARS-CoV-2 (PCR) NOT DETECTED 09/27/23 07:00
[2023-09-29 20:07] LABS: MYCOPLASMA PNEUMONIAE IGG ABS 100 U/mL (0-99); MYCOPLASMA PNEUMONIAE IGM ABS <770 U/mL (0-769)
[2023-09-30] MEDS: SODIUM CHLORIDE FLUSH 0.9% 10 ML SYRINGE IVP SCH ×3 (00:21→17:09)
[2023-09-30] MEDS: polyethylene glycoL 3350 17 GM PACKET PO SCH (04:10)
[2023-09-30 05:50] LABS: BASOPHILS % (AUTO) 0.2 %; EOSINOPHILS % (AUTO) 0.3 %; HCT - HEMATOCRIT 37.7 % (37.0-47.0); HGB - HEMOGLOBIN 11.6 g/dL (12.0-16.0); LYMPHOCYTES # (AUTO) 1.9 10^3/uL (1.5-3.5); LYMPHOCYTES % (AUTO) 19.1 %; MEAN CORPUSCULAR HEMOGLOBIN 27.2 pg (27.0-31.0); MEAN CORPUSCULAR HGB CONC 30.8 g/dL (32.0-36.0); MEAN CORPUSCULAR VOLUME 88.3 fL (81.0-99.0); MEAN PLATELET VOLUME 11.2 fL (7.9-10.8); MONOCYTES # (AUTO) 0.5 10^3/uL (0.0-1.0); MONOCYTES % (AUTO) 5.4 %; NEUTROPHILS # (AUTO) 7.4 10^3/uL (1.5-6.6); NEUTROPHILS % (AUTO) 74.2 %; PLT - PLATELET COUNT 241 10^3/uL (130-450); RED BLOOD COUNT 4.27 10^6/uL (4.20-5.40); RED CELL DISTRIBUTION WIDTH 15.6 % (12.0-15.0)
[2023-09-30 06:12] LABS: CALCIUM 9.1 mg/dL (8.5-10.3); CREATININE 0.7 mg/dL (0.6-1.3); POTASSIUM 3.6 mmol/L (3.5-4.5)
[2023-09-30] MEDS: IPRATROPIUM/ALBUTEROL 3 ML NEB INH SCH ×5 (07:07→19:05)
[2023-09-30] MEDS: ENOXAPARIN 40 MG/0.4 ML SYRINGE SUBQ SCH (08:45)
[2023-09-30] MEDS: FLUoxetine 10 MG CAPSULE PO SCH (08:45)
[2023-09-30] MEDS: SACCHAROMYCES BOULARDII 250 MG CAPSULE PO SCH ×2 (08:45→17:09)
[2023-09-30] MEDS: cefTRIAXone 1 GM in SODIUM CHLORIDE 0.9% MINIBAG 100 ML IV SCH (13:25)
[2023-09-30] MEDS: guaiFENesin/CODEINE 5 ML UDC PO PRN (16:36)
--- NOTE | 2023-09-30 19:20 | PROVIDER PROGRESS NOTE ---
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 She may be aspirating during her apnea. However, this is the first time she has ever been sick like this. No history of asthma. Her PCR panel is negative. CT confirms severe patchy airspace opacity within the superior segments of the right lower lobe as well as medial basilar aspect of the right lower lobe, moderate airspace opacity within the left upper lobe posteriorly as well as the perihilar aspect of the left lower lobe. She does appear to be improving on current antibx Plan Cont Rocephin (5 day course planned) and Azithromycin (1500mg total dose), Azithro was completed (2) Acute resp failure with hypoxia Conclusion/Plan: Significant airspace disease seen on imaging. She definitely gives a history of an acute episode resulting in an asthmatic exacerbation, chest congestion and a picture of multifocal pneumonia. Plan: Cont suppl nasal cannula oxygen, titrating down to room air as tolerated I will order an oximetry walk test on day of discharge to see if she needs home O2 (3) Exacerbation of reactive airway disease Conclusion/Plan: She does not have a history of asthma. But her brother and her sister have diagnosed asthma. She says she has never wheezed like this before. She is a non- smoker. Mycoplasma is associated with wheezing. Aspiration is associated with wheezing. Congestive heart failure is associated with wheezing. Certain medica tions are associated with wheezing. RSV is associated with wheezing but she does not have a positive viral panel. Plan: Continue to treat with DuoNeb on a 4 times daily schedule, and Albuterol every 2h as needed Solu-Medrol iv to continue, tapering the dose down Robitussin AC as needed She should have W/U for asthma as an outpt with PFTs done, I told her (4) Obstructive sleep apnea Conclusion/Plan: SCOTT was recently diagnosed and she does not have her mask yet. She is currently sleeping upright in the room here and leg elevation if sleeping in the recliner, was advised. (5) Obesity Conclusion/Plan: Her BMI is 33.7. This can be adding to her obstructive sleep apnea, depression, lethargy and even more weight gain. I told her that the next time she sees her primary care provider with [facility], to consider SLG P2 inhibitor, to help with wt loss. (6) Memory change Conclusion/Plan: A lot of this started in 2019, when she became sedentary, depressed. Possibly she became depressed and as such the cascade of events followed of weight gain, less exercise, and obstructive sleep apnea developed. Or the obstructive sleep apnea could have caused the lethargy, and the weight gain. In any case this was associated with memory loss. I am hoping that if she can get her obstructive sleep apnea under control, weight loss goals achieved, there is some of this lethargy and memory fog can be alleviated (7) Hypokalemia Conclusion/Plan: She was given potassium and magnesium supplementation in the ER. Following BMP daily. - Current Meds Current Meds: Current Medications Generic Name Dose Route Start Last Admin Trade Name Freq PRN Reason Stop Dose Admin Acetaminophen 650 mg 09/27/23 09:22 09/29/23 22:06 Acetaminophen 325 Mg Tablet PO 650 mg Q4HR PRN Administration Pain 1 to 4, or Fever Albuterol/Ipratropium 3 ml 09/28/23 07:00 09/30/23 19:05 Ipratropium/Albuterol 3 Ml Neb INH 3 ml RTQID HARSHA Administration Enoxaparin Sodium 40 mg 09/27/23 10:00 09/30/23 08:45 Enoxaparin 40 Mg/0.4 Ml Syringe SUBQ 40 mg DAILY HARSHA Administration Fluoxetine HCl 40 mg 09/27/23 10:00 09/30/23 08:45 Fluoxetine 10 Mg Capsule PO 40 mg DAILY HARSHA Administration Guaifenesin/Codeine Phosphate 5 ml 09/27/23 19:12 09/30/23 16:36 Guaifenesin/Codeine 5 Ml Udc PO 5 ml Q6HR PRN Administration Cough Ceftriaxone Sodium 1 gm/ 100 mls @ 200 mls/hr 09/28/23 09:00 09/30/23 14:30 Sodium Chloride IV 10/01/23 09:29 Infused DAILY HARSHA Infusion Ketorolac Tromethamine 15 mg 09/27/23 07:50 09/28/23 16:24 Ketorolac 15 Mg/Ml Vial IVP 10/02/23 07:49 15 mg Q6HR PRN Administration Severe Pain (Level 7-10) Ondansetron HCl 4 mg 09/27/23 09:22 09/28/23 22:30 Ondansetron Odt 4 Mg Tablet TL 4 mg Q6HR PRN Administration Nausea / Vomiting Oxycodone HCl 5 mg 09/27/23 09:22 09/28/23 22:42 Oxycodone 5 Mg Tablet PO 5 mg Q4HR PRN Administration Pain 5 to 7 Polyethylene Glycol 17 gm 09/29/23 09:00 09/30/23 04:10 Polyethylene Glycol 3350 17 Gm Packet PO Not Given DAILY HARSHA Saccharomyces Boulardii 250 mg 09/27/23 17:00 09/30/23 17:09 Saccharomyces Boulardii 250 Mg Capsule PO 250 mg BIDWM HARSHA Administration Sodium Chloride 10 ml 09/27/23 17:00 09/30/23 17:09 Sodium Chloride Flush 0.9% 10 Ml Syringe IVP 10 ml 0100,0900,1700 HARSHA Administration - Lab Result Fish Bone Diagrams: 09/30/23 05:30 09/30/23 05:30 - Additional Planning My Orders: My Active Orders 09/30/23 07:54 Oxygen Desat. Study w/Exercise [RC] .ONCE Subjective - Subjective Patient Reports: Feeling Better (She is smiling and happy that she is saturating better so suppl O2 can be weaned down) Objective Vital Signs: Vital Signs - 24 hr 09/29/23 09/30/23 09/30/23 20:05 00:33 07:09 Temperature 36.7 C Heart Rate 80 80 Heart Rate [ 84 Brachial] Respiratory 24 18 20 Rate Blood Pressure [Left Brachial artery] Blood Pressure 151/74 H [Right Brachial artery] O2 Saturation 92 09/30/23 09/30/23 09/30/23 07:41 08:12 10:44 Temperature 37.1 C Heart Rate 88 84 Heart Rate [ 79 Brachial] Respiratory 18 20 Rate Blood Pressure [Left Brachial artery] Blood Pressure 174/97 H [Right Brachial artery] O2 Saturation 94 09/30/23 09/30/23 09/30/23 15:35 16:00 19:07 Temperature 37.0 C Heart Rate 78 92 Heart Rate [ 93 Brachial] Respiratory 18 18 20 Rate Blood Pressure 166/91 H [Left Brachial artery] Blood Pressure [Right Brachial artery] O2 Saturation 92 Oxygen O2 Source Room air Oxygen Flow Rate 4 I&O (Last 24 Hrs): Intake and Output Totals x24h 09/28/23 09/29/2323 23:59 23:59 23:59 Intake Total 3183.333 1760 1540 Balance 3183.333 1760 1540 General: Alert, Oriented x3, No acute distress HEENT: EOMI, Mucous membr. moist/pink, Other (Less hoarseness of voice) Neck: Supple, No JVD Neuro: Alert, Non Focal Cardiovascular: Regular rate, No murmurs Respiratory: Wheezes (Minimal scattered wheezing, better air mvm in all lung flores) Abdomen: Soft, No tenderness Extremities: No clubbing, No edema, No tenderness/swelling - Results Results: Laboratory Results WBC 10.0 x10^3/uL (4.8-10.8) 09/30/23 05:30 RBC 4.27 10^6/uL (4.20-5.40) 09/30/23 05:30 Hgb 11.6 g/dL (12.0-16.0) L 09/30/23 05:30 Hct 37.7 % (37.0-47.0) 09/30/23 05:30 MCV 88.3 fL (81.0-99.0) 09/30/23 05:30 MCH 27.2 pg (27.0-31.0) 09/30/23 05:30 MCHC 30.8 g/dL (32.0-36.0) L 09/30/23 05:30 RDW 15.6 % (12.0-15.0) H 09/30/23 05:30 Plt Count 241 10^3/uL (130-450) 09/30/23 05:30 MPV 11.2 fL (7.9-10.8) H 09/30/23 05:30 Neut # (Auto) 7.4 10^3/uL (1.5-6.6) H 09/30/23 05:30 Lymph # (Auto) 1.9 10^3/uL (1.5-3.5) 09/30/23 05:30 Rutherford # (Auto) 0.5 10^3/uL (0.0-1.0) 09/30/23 05:30 Eos # (Auto) 0.0 10^3/uL (0.0-0.7) 09/30/23 05:30 Baso # (Auto) 0.0 10^3/uL (0.0-0.1) 09/30/23 05:30 Absolute Nucleated RBC 0.00 x10^3/uL 09/30/23 05:30 Nucleated RBC % 0.0 /100WBC 09/30/23 05:30 PT 12.0 secs (9.9-12.6) 09/27/23 06:55 INR 1.1 (0.8-1.2) 09/27/23 06:55 Sodium 138 mmol/L (135-145) 09/30/23 05:30 Potassium 3.6 mmol/L (3.5-4.5) 09/30/23 05:30 Chloride 104 mmol/L (101-111) 09/30/23 05:30 Carbon Dioxide 28 mmol/L (21-32) 09/30/23 05:30 Anion Gap 6.0 (6-13) 09/30/23 05:30 BUN 14 mg/dL (6-20) 09/30/23 05:30 Creatinine 0.7 mg/dL (0.6-1.3) 09/30/23 05:30 Estimated GFR (MDRD) 85 (>89) L 09/30/23 05:30 Glucose 155 mg/dL (74-104) H 09/30/23 05:30 Lactic Acid 1.7 mmol/L (0.5-2.2) 09/27/23 07:40 Calcium 9.1 mg/dL (8.5-10.3) 09/30/23 05:30 Magnesium 2.1 mg/dL (1.7-2.3) 09/28/23 04:51 Total Bilirubin 0.5 mg/dL (0.2-1.0) 09/27/23 06:55 AST 11 IU/L (10-42) 09/27/23 06:55 ALT 15 IU/L (10-60) 09/27/23 06:55 Alkaline Phosphatase 73 IU/L (42-121) 09/27/23 06:55 Troponin I High Sens 5.9 ng/L (2.3-14.8) 09/27/23 06:55 B-Natriuretic Peptide 87 pg/mL (5-100) 09/27/23 06:55 Total Protein 6.7 g/dL (6.4-8.9) 09/27/23 06:55 Albumin 3.9 g/dL (3.2-5.5) 09/27/23 06:55 Globulin 2.8 g/dL (2.1-4.2) 09/27/23 06:55 Albumin/Globulin Ratio 1.4 (1.0-2.2) 09/27/23 06:55 Nasal Adenovirus (PCR) NOT DETECTED 09/27/23 07:00 Nasal B. parapertussis DNA (PCR) NOT DETECTED 09/27/23 07:00 Nasal Coronavir 229E PCR NOT DETECTED 09/27/23 07:00 Nasal Coronavir HKU1 PCR NOT DETECTED 09/27/23 07:00 Nasal Coronavir NL63 PCR NOT DETECTED 09/27/23 07:00 Nasal Coronavir OC43 PCR NOT DETECTED 09/27/23 07:00 Nasal Enterovir/Rhinovir PCR NOT DETECTED 09/27/23 07:00 Nasal Influenza B PCR NOT DETECTED 09/27/23 07:00 Nasal Influenza A PCR NOT DETECTED 09/27/23 07:00 Nasal Parainfluen 1 PCR NOT DETECTED 09/27/23 07:00 Nasal Parainfluen 2 PCR NOT DETECTED 09/27/23 07:00 Nasal Parainfluen 3 PCR NOT DETECTED 09/27/23 07:00 Nasal Parainfluen 4 PCR NOT DETECTED 09/27/23 07:00 Nasal RSV (PCR) NOT DETECTED 09/27/23 07:00 Nasal B.pertussis DNA PCR NOT DETECTED 09/27/23 07:00 Nasal C.pneumoniae (PCR) NOT DETECTED 09/27/23 07:00 Jose Rafael Human Metapneumo PCR NOT DETECTED 09/27/23 07:00 Nasal M.pneumoniae (PCR) NOT DETECTED 09/27/23 07:00 Nasal SARS-CoV-2 (PCR) NOT DETECTED 09/27/23 07:00 Mycoplasma pneumon IgG 100 U/mL (0-99) H 09/27/23 09:50 Mycoplasma pneumon IgM <770 U/mL (0-769) 09/27/23 09:50
[2023-09-30] MEDS: ACETAMINOPHEN 325 MG TABLET PO PRN (20:20)
[2023-10-01] MEDS: SODIUM CHLORIDE FLUSH 0.9% 10 ML SYRINGE IVP SCH ×2 (01:00→08:52)
[2023-10-01] MEDS: IPRATROPIUM/ALBUTEROL 3 ML NEB INH SCH ×2 (07:06→11:25)
[2023-10-01] MEDS: SACCHAROMYCES BOULARDII 250 MG CAPSULE PO SCH (08:50)
[2023-10-01] MEDS: ENOXAPARIN 40 MG/0.4 ML SYRINGE SUBQ SCH (08:51)
[2023-10-01] MEDS: FLUoxetine 10 MG CAPSULE PO SCH (08:51)
[2023-10-01] MEDS: cefTRIAXone 1 GM in SODIUM CHLORIDE 0.9% MINIBAG 100 ML IV SCH (08:51)
[2023-10-01] MEDS: polyethylene glycoL 3350 17 GM PACKET PO SCH (08:52)
--- NOTE | 2023-10-01 13:42 | Discharge Plan ---
Discharge Plan Problem Reviewed?: Yes Disposition: Home, Self Care Condition: Fair Diet: Regular Activity Restrictions: Activity as Tolerated Shower Restrictions: No Driving Restrictions: No Health Concerns: You were hospitalized to treat a severe pneumonia that caused you to have wheezing and low oxygen levels. You needed supplemental oxygen and IV antibiotics. Bronchodilators were used to open your lungs and Robitussin to break up the phlegm. You are being discharged home today. You have completed your course of antibiotics. You can continue to use the Robitussin to help cough up the phlegm. Please see your primary care provider for a hospital follow-up visit, and to determine if you need an inhaler, in case you also have asthma like your siblings. You will need outpatient PFTs (Pulmonary Function Testing). Plan of Treatment: As above. Care Goals: Improvement in symptoms and stabilization are the goals. Assessment: The patient understands and is agreeable with the plan. Additional Instructions or Follow Up instructions: If you have new or worsening symptoms, call your Primary Care Provider for advice, or come to the ER. No Smoking: If you smoke, Please STOP! Call for help.
--- NOTE | 2023-10-01 13:49 | DISCHARGE SUMMARY ---
Discharge Summary Admit Date: 09/27/23 Discharge Date: 10/01/23 Discharging Provider: Dr Ashley Moore Primary Care Provider: RAVINDRA Green Condition at Discharge: Fair Discharge Disposition: 01 Home, Self Care - HPI History of Present Illness: H&P of Dr Peguero: 62-year-old who presented to the emergency room with cough, fatigue, muscle aches, chills and sinus and chest congestion for over a week. She said that she usually does not have asthma. But the cough is associated with wheezing. Every time she laid down to go to bed at night, the coughing spasms be so severe. She started getting sharp stabbing chest pain that started in the front of her chest and radiated straight through to her back. They were fleeting, infrequent but incredibly uncomfortable so she started sleeping upright. She was seen at [facility] when it first started and had a chest x-ray. She was given albuterol and prednisone without antibiotics. Chest x-ray was read as clear. She now presents back to our emergency room because she is not getting any better. The coughing continues with minimal activity inciting it. She continues to have intermittent uncontrollable cough. Sinus and chest congestion. Profound fatigue. Wheezing.No hemoptysis. No leg edema. Our emergency room provider saw her and she was afebrile, slightly tachycardic at 101, and requiring 2 L nasal cannula to maintain an O2 sat. Exam was mainly positive for increased work of breathing and partial sentence dyspnea. She had diffuse wheezing and prolonged and expiratory phase. Her CMP was normal except for a random glucose of 119, and potassium was 3.2. Her lactic acid was normal at 1.7. Her CBC had an elevated white cell count of 15.1 (in the context of prednisone being given and her infection). PCR panel for viruses was negative. Initial chest x-ray read as a perihilar infiltrate. Possible malignancy. As such a CT was done and she has severe patchy airspace opacity within the superior segment of the right lower lobe as well as the medial basilar aspect of the right lower lobe. Moderate airspace opacity within the left upper lobe posteriorly and perihilar aspect of the left lower lobe. No effusions. No pneumothorax. She has right infrahilar adenopathy. Coronary calcification. In the ER treatment has consisted of DuoNeb, azithromycin, ceftriaxone. Her respiratory rate has gone down to 18 from 25. Her O2 sat is still 97% with 4 L. Her heart rate is 87. After discussion with the ER provider, I am now admitting the patient to inpatient status. It is doubtful that she will recover in 1 midnight. In meeting the patient to do a review of systems the following were discussed: When 2019 came around, she just had a lot of depression. She gained a lot of weight. She was swimming every day in [employer] and then just stopped going. Not because of COVID but because she lost the energy and desire to do so. She is deaf in her left ear. Lifelong swimmer [place] the [place] [facility] and she was getting chronic ear infections so her left ear is affected. She does not have allergies, sinusitis. She has normal vision loss of aging. No glaucoma. She denies any problems with swallowing, teeth problems She has no history of asthma, coughing like this. She was diagnosed with severe obstructive sleep apnea. On a scale of 1-10, "I am a 15". She still does not have her sleep mass. That was identified recently. Positive stabbing chest pain, positive orthopnea, no leg edema. Severe dyspnea on exertion all started this last week. No phlegm production. No history of ulcers, indigestion, diarrhea Chronic sciatica. Right leg shakes sometimes. Knees and hips just ache. No new skin lesions. No history of skin cancer Denies polydipsia, polyuria, polyphagia. Depression is a problem. Much worse in 2019 but seems to be better this year Starting to lose her memory. 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 She worries about that because mom has dementia. But no history of seizures, syncope, focal neurological deficits She says this is the first time she is ever been hospitalized for severe illne ss. She was hospitalized for couple of days for sciatica years ago. She was hospitalized for the of her 3 children. But she has never been hospitalized for a medical reason like this. - HOSPITAL COURSE Hospital Course: (1) Multifocal pneumonia With recently diagnosed obstructive sleep apnea, she may be aspirating during he r apnea. Her respiratory PCR panel was negative. CT showed severe patchy airspace opacity within the superior segments of the right lower lobe and medial basilar aspect of the right lower lobe, and moderate airspace opacity within the left upper lobe posteriorlyand the perihilar aspect of the left lower lobe. She was treated and improved on Rocephin (5 day course) and Azithromycin (1500mg total dose). (2) Acute resp failure with hypoxia She required suppl O2 which was slowly titrated down to room air. She had an oximetry walk test on day of discharge to see if she needs home O2, and she did not. (3) Exacerbation of reactive airway disease She does not have a history of asthma. But her brother and her sister have diagnosed asthma. She is a non-smoker. She was treated with DuoNebs, Solu-Medrol iv which was tapered down, and Robitussin AC prn. She needs to have W/U for asthma as an outpt with PFTs done, and inhalers ordered if indicated. (4) Obstructive sleep apnea SCOTT was recently diagnosed and she does not have her mask yet. She was sleeping upright in a recliner with legs elevated. (5) Obesity Her BMI is 33.7. This can be adding to her obstructive sleep apnea, depression, lethargy and even more weight gain. I told her that the next time she sees her primary care provider with [facility], to consider SLG P2 inhibitor, to help with wt loss. (6) Memory change Started in 2019, when she became sedentary, depressed. Possibly she became depressed and as such the cascade of events followed of weight gain, less exercise, and obstructive sleep apnea developed. Or the obstructive sleep apnea could have caused the lethargy, and the weight gain. In any case this was associated with memory loss. The hope is that if she can get her obstructive sleep apnea under control, weight loss goals achieved, then this lethargy and memory fog can be alleviated (7) Hypokalemia K was replaced - ALLERGIES Allergies/Adverse Reactions: Allergies Allergy/AdvReac Type Severity Reaction Status Date / Time No Known Drug Allergies Allergy Verified 09/27/23 06:59 - MEDICATIONS Home Medications: Ambulatory Orders Medication Instructions Recorded Confirmed Fluoxetine HCl [Prozac] 40 mg PO DAILY 09/27/23 09/27/23 - PHYSICAL EXAM AT DISCHARGE General Appearance: positive: No acute distress, Alert Eyes Bilateral: positive: Normal inspection, EOMI ENT: positive: ENT inspection nml, No signs of dehydration Neck: positive: Nml inspection, No JVD Respiratory: positive: No respiratory distress Cardiovascular: positive: Regular rate & rhythm, No murmur Abdomen: positive: Non-tender Skin: positive: Warm, Dry Extremities: positive: Non-tender, No pedal edema Neurologic/Psychiatric: positive: Oriented x3, CN's nml (2-12), Motor nml - LABS Result Diagrams: 09/30/23 05:30 09/30/23 05:30 - DIAGNOSTIC IMAGING Diagnostic Imaging Results: Final report reviewed - FOLLOW UP Follow Up: See PCP for a hospital F/U visit, and needs PFTs done AIDE. Start using CPAP mask and have F/U for that too. - TIME SPENT Time Spent in Discharge (Minutes): 40
[2023-10-01 15:07] VITALS: BP 169/81; O2SAT 93
== END 2023-10-01 15:25 | disposition home or self-care (01) | DRG 193 ==
LOC: ED 06:47 → MS2 09:22
PROVIDERS: ADMIT Specialist; ATTEND Internal Medicine
DX: J18.9 Pneumonia, unspecified organism (principal); J96.01 Acute respiratory failure with hypoxia; J45.901 Unspecified asthma with (acute) exacerbation; G47.33 Obstructive sleep apnea (adult) (pediatric); Z68.36 Body mass index [BMI] 36.0-36.9, adult; I25.10 Atherosclerotic heart disease of native coronary artery without angina pectoris; F32.A Depression, unspecified; H91.92 Unspecified hearing loss, left ear; E66.9 Obesity, unspecified; R41.3 Other amnesia; E87.6 Hypokalemia; R00.0 Tachycardia, unspecified; R59.0 Localized enlarged lymph nodes; R53.83 Other fatigue
CPT/HCPCS: 36415; 71045; 71260; 80048; 80053; 83605; 83735; 83880; 84484; 85025; 85610; 86738; 87040; 87070; 87150; 87181; 87205; 87633; 93005; 94640; 94761; 96365; 96368; 96375; 99284; 99285; A9270; J1650; Q0162; Q9967

== ENCOUNTER 2023-11-28 11:50 | Emergency (ER) | payer MEDICAID ==
[2023-11-28 12:45] LABS: BILIRUBIN,URINE NEGATIVE (NEGATIVE); GLUCOSE, URINE (UA) NEGATIVE (NEGATIVE); KETONES,URINE (UA) NEGATIVE (NEGATIVE); LEUKOCYTE ESTERASE, URINE SMALL (NEGATIVE); NITRITE,URINE NEGATIVE (NEGATIVE); OCCULT BLOOD,URINE LARGE (NEGATIVE); PH,URINE 6.5 PH (5.0-7.5); PROTEIN,URINE 100 mg/dL (NEGATIVE); UROBILINOGEN,URINE 0.2 (NORMAL) E.U./dL (NORMAL)
[2023-11-28 12:46] LABS: CLARITY,URINE CLOUDY (CLEAR)
[2023-11-28 12:49] LABS: RBC,URINE TNTC /HPF (0-5)
[2023-11-28 12:50] LABS: BACTERIA,URINE Few /HPF (None Seen); SQUAMOUS EPITHELIAL CELL,UR FEW Squamous (<= Few)
--- NOTE | 2023-11-28 12:53 | ED Physician Documentation ---
PD HPI FEMALE - Stated complaint Stated Complaint: - Chief complaint Chief Complaint: UTI - History obtained from History obtained from: Patient - History of Present Illness Timing - onset: How many days ago (2-3) Timing - duration: Days (2-3) Timing - details: Gradual onset, Still present Associated symptoms: Dysuria, Urinary frequency, Hematuria. No: Fever, Vaginal discharge, Genital sore/lesion Similar symptoms before: Diagnosis (had UTI about 6 months ago. Not for long time prior to that.) Review of Systems Constitutional: denies: Fever, Chills GI: denies: Nausea, Vomiting Musculoskeletal: denies: Back pain PD PAST MEDICAL HISTORY - Past Medical History Past Medical History: Yes Cardiovascular: None Respiratory: Pneumonia, Other Neuro: None Endocrine/Autoimmune: None GI: None TOMOGRAPHIC TECH: Other : None HEENT: Chronic vision loss Psych: Depression Musculoskeletal: Osteoarthritis, Fatigue, Chronic back pain Derm: Eczema - Past Surgical History Past Surgical History: Yes /TOMOGRAPHIC TECH: Tubal ligation - Present Medications Home Medications: Ambulatory Orders Medication Instructions Recorded Confirmed Fluoxetine HCl [Prozac] 40 mg PO DAILY 09/27/23 11/28/23 Meloxicam 7.5 mg PO DAILY PRN 11/28/23 11/28/23 Phenazopyridine HCl [Pyridium] 100 mg PO TID PRN #15 tablet 11/28/23 cephALEXin [Keflex] 500 mg PO TID #20 cap 11/28/23 - Allergies Allergies/Adverse Reactions: Allergies Allergy/AdvReac Type Severity Reaction Status Date / Time No Known Drug Allergies Allergy Verified 11/28/23 11:57 - Social History Does the pt smoke?: No Smoking Status: Never smoker Does the pt drink ETOH?: No Does the pt have substance abuse?: Yes - Immunizations Immunizations are current?: Yes - POLST Patient has POLST: No PD ED PE NORMAL - Vitals Vital signs reviewed: Yes - General General: Alert and oriented X 3, No acute distress, Well developed/nourished - Female Female : Deferred - Back Back: No CVA TTP - Derm Derm: Normal color, Warm and dry - Neuro Neuro: Alert and oriented X 3, Normal speech Results - Vitals Vitals: Vital Signs - 24 hr 11/28/23 11/28/23 11:57 13:23 Temperature 36.8 C 36.8 C Heart Rate 87 86 Respiratory 18 18 Rate Blood Pressure 140/76 H 130/80 O2 Saturation 97 98 Oxygen O2 Source Room air - Labs Labs: Laboratory Tests 11/28/23 12:26 Urine Color LT RED Urine Clarity CLOUDY Urine pH 6.5 Ur Specific Dutton 1.020 Urine Protein 100 H Urine Glucose (UA) NEGATIVE Urine Ketones NEGATIVE Urine Occult Blood LARGE H Urine Nitrite NEGATIVE Urine Bilirubin NEGATIVE Urine Urobilinogen 0.2 (NORMAL) Ur Leukocyte Esterase SMALL H Urine RBC TNTC H Urine WBC 4-5 Ur Squamous Epith Cells FEW Squamous Urine Bacteria Few Ur Microscopic Review INDICATED Urine Culture Comments INDICATED PD Medical Decision Making - ED course Complexity details: considered differential (She has symptoms consistent with UTI with frequency and discomfort. No fevers nausea or back pain. Urinalysis is consistent with UTI. Will treat it as such.), d/w patient Departure - Departure Disposition: 01 Home, Self Care Clinical Impression: Dysuria, Acute cystitis Condition: Stable Record reviewed to determine appropriate education?: Yes Instructions: ED UTI Cystitis Female Prescriptions: cephALEXin [Keflex] 500 mg PO TID #20 cap Phenazopyridine HCl [Pyridium] 100 mg PO TID PRN #15 tablet PRN Reason: Abdominal Pain Comments: Stay well-hydrated regularly. This is probably one of the more leading processes causing bladder infection would be under hydration. If you have recurring bladder infections in the near future still, other consideration would be incomplete emptying/dropped bladder or such that promotes more easy infections. Otherwise it would not be too unusual to get occasional bladder infections. Cephalexin antibiotic as prescribed. You can add short-term phenazopyridine to help with symptoms of the discomfort with urination. Additionally you could add ibuprofen or naproxen or Tylenol type medicines as well. I would anticipate improvement over the next 2 to 3 days and resolved by 3 to 5 days. Recheck if not improving in that timeframe. We will do a urine culture and if there are indications for needing to change antibiotics from that, we will call you. This will be in a couple of days if it occurs. I sent your prescription to preferred pharmacy. Forms: PCP List Discharge Date/Time: 11/28/23 13:23
[2023-11-28] MEDS: cephALEXin 250 MG CAPSULE PO STA (13:19)
[2023-11-28] MEDS: PHENAZOPYRIDINE 100 MG TABLET PO STA (13:19)
[2023-11-28] MEDS: NAPROXEN 250 MG TABLET PO STA (13:19)
[2023-11-28 13:28] VITALS: BP 130/80; O2SAT 98
== END 2023-11-28 13:23 | disposition home or self-care (01) ==
LOC: ED 11:50
DX: N30.01 Acute cystitis with hematuria (principal); B96.20 Unspecified Escherichia coli [E. coli] as the cause of diseases classified elsewhere; Z87.440 Personal history of urinary (tract) infections; Z79.899 Other long term (current) drug therapy
CPT/HCPCS: 81001; 87086; 87181; 99283; A9270; 81003

== ENCOUNTER 2024-06-21 09:20 | Outpatient (CLI) | payer MEDICAID ==
[2024-06-21 12:24] LABS: BASOPHILS # (AUTO) 0.1 10^3/uL (0.0-0.1); BASOPHILS % (AUTO) 0.7 %; EOSINOPHILS # (AUTO) 0.2 10^3/uL (0.0-0.7); EOSINOPHILS % (AUTO) 2.1 %; HCT - HEMATOCRIT 41.4 % (37.0-47.0); HGB - HEMOGLOBIN 12.9 g/dL (12.0-16.0); LYMPHOCYTES # (AUTO) 1.5 10^3/uL (1.5-3.5); LYMPHOCYTES % (AUTO) 21.7 %; MEAN CORPUSCULAR HEMOGLOBIN 27.7 pg (27.0-31.0); MEAN CORPUSCULAR HGB CONC 31.2 g/dL (32.0-36.0); MEAN PLATELET VOLUME 12.5 fL (7.9-10.8); MONOCYTES # (AUTO) 0.7 10^3/uL (0.0-1.0); MONOCYTES % (AUTO) 10.2 %; NEUTROPHILS # (AUTO) 4.6 10^3/uL (1.5-6.6); NEUTROPHILS % (AUTO) 64.9 %; RED BLOOD COUNT 4.65 10^6/uL (4.20-5.40); RED CELL DISTRIBUTION WIDTH 15.3 % (12.0-15.0); WHITE BLOOD COUNT 7.1 x10^3/uL (4.8-10.8)
[2024-06-21 12:32] LABS: SLIDE REVIEW? Indicated
[2024-06-21 12:41] LABS: PLATELET ESTIMATE, MANUAL NORMAL (130-450,000) (NORMAL); PLATELET MORPHOLOGY PLATELET CLUMPING (NORMAL); RBC MORPHOLOGY (MULTIPLE) NORMAL APPEARANCE (NORMAL)
[2024-06-21 12:53] LABS: ALBUMIN 4.2 g/dL (3.2-5.5); ALBUMIN/GLOBULIN RATIO 1.4 (1.0-2.2); ALKALINE PHOSPHATASE 84 IU/L (42-121); ALT ALANINE AMINOTRANSFERASE 18 IU/L (10-60); AST ASPARTATE AMINOTRANSFERASE 15 IU/L (10-42); BILIRUBIN,TOTAL 0.6 mg/dL (0.2-1.0); BUN - BLOOD UREA NITROGEN 12 mg/dL (6-20); CALCIUM 9.9 mg/dL (8.5-10.3); CARBON DIOXIDE - CO2 26 mmol/L (21-32); CHLORIDE 104 mmol/L (101-111); CHOLESTEROL 193 mg/dL; CREATININE 0.6 mg/dL (0.6-1.3); CRP - C-REACTIVE PROTEIN 1.8 mg/dL (<0.5); GFR - MDRD 101 (>89); GLUCOSE 80 mg/dL (74-104); HDL CHOLESTEROL 48 mg/dL; LDL CHOLESTEROL,CALCULATED 127 mg/dL; LDL/HDL RATIO 2.6 (<4.4); POTASSIUM 3.8 mmol/L (3.5-4.5); SODIUM 137 mmol/L (135-145); TOTAL PROTEIN 7.2 g/dL (6.4-8.9); TRIGLYCERIDES 89 mg/dL; URIC ACID 3.3 mg/dL (2.3-6.6); VLDL CHOLESTEROL 18 mg/dL
[2024-06-21 13:02] LABS: THYROID STIMULATING HORMONE 1.13 uIU/mL (0.34-5.60)
[2024-06-21 13:20] LABS: ESTIMATED AVERAGE GLUCOSE 123 mg/dL (70-100); HEMOGLOBIN A1c% 5.9 % (4.27-6.07)
[2024-06-21 13:29] LABS: RHEUMATOID FACTOR POSITIVE (Negative)
[2024-06-22 19:07] LABS: ANTINUCLEAR ANTIBODIES IFA Negative (.)
[2024-06-22 20:08] LABS: ANTI-DNA (DS) AB QN <1 IU/mL (0-9)
== END 2024-06-21 09:21 | disposition home or self-care (01) ==
LOC: LAB.N 09:20
PROVIDERS: ATTEND Physician Assistant
DX: R73.03 Prediabetes (principal); Z13.9 Encounter for screening, unspecified; M25.50 Pain in unspecified joint; M20.029 Boutonniere deformity of unspecified finger(s)
CPT/HCPCS: 36415; 80053; 80061; 83036; 83721; 84443; 84550; 85025; 85651; 86038; 86140; 86200; 86225; 86430

== ENCOUNTER 2024-11-12 12:50 | Inpatient (IN) ==
[2024-11-12 14:10] LABS: BASOPHILS % (AUTO) 0.1 %; HGB - HEMOGLOBIN 13.4 g/dL (12.0-16.0); LYMPHOCYTES # (AUTO) 0.5 10^3/uL (1.5-3.5); LYMPHOCYTES % (AUTO) 5.3 %; MEAN CORPUSCULAR HEMOGLOBIN 29.2 pg (27.0-31.0); MEAN CORPUSCULAR HGB CONC 32.7 g/dL (32.0-36.0); MEAN CORPUSCULAR VOLUME 89.3 fL (81.0-99.0); MEAN PLATELET VOLUME 11.7 fL (7.9-10.8); MONOCYTES # (AUTO) 0.8 10^3/uL (0.0-1.0); MONOCYTES % (AUTO) 7.8 %; NEUTROPHILS # (AUTO) 8.3 10^3/uL (1.5-6.6); NEUTROPHILS % (AUTO) 86.3 %; PLT - PLATELET COUNT 125 10^3/uL (130-450); RED BLOOD COUNT 4.59 10^6/uL (4.20-5.40); RED CELL DISTRIBUTION WIDTH 13.2 % (12.0-15.0); WHITE BLOOD COUNT 9.6 x10^3/uL (4.8-10.8)
--- NOTE | 2024-11-12 14:14 | XRAY Report ---
PROCEDURE: XR Chest 1V INDICATIONS: cough, short of breath TECHNIQUE: One view of the chest was acquired. COMPARISON: 09/27/2023, plain film and CT FINDINGS: Surgical changes and devices: None. Lungs and pleura: There is mild to moderate right upper lobe infiltrate, which is slightly worse on the current study than on the prior. The previously seen right perihilar infiltrate is improved clayton red to the prior. Generalized interstitial prominence can be seen. Mediastinum: Mediastinal contours appear normal. Heart size is normal. Bones and chest wall: No suspicious bony lesions. Age-appropriate degenerative changes are seen. Overlying soft tissues appear unremarkable. IMPRESSION: Right-sided infiltrate, which is worse within the right upper lobe compared to the prior examination and improved within the right perihilar region compared to the prior images. Reviewed by: Carl Worrell MD on 11/12/2024 1:13 PM [facility] Approved by: Carl Worrell MD on 11/12/2024 1:13 PM [facility] Station ID: [id number]
[2024-11-12 14:22] LABS: ALBUMIN 3.8 g/dL (3.2-5.5); ALBUMIN/GLOBULIN RATIO 1.5 (1.0-2.2); BILIRUBIN,TOTAL 0.6 mg/dL (0.2-1.0); CALCIUM 8.6 mg/dL (8.5-10.3); CREATININE 0.6 mg/dL (0.6-1.3); POTASSIUM 3.2 mmol/L (3.5-4.5); TOTAL PROTEIN 6.4 g/dL (6.4-8.9)
[2024-11-12] MEDS: POTASSIUM BICARB 25 MEQ TABLET PO STA (14:56)
[2024-11-12] MEDS: IPRATROPIUM/ALBUTEROL 3 ML NEB INH STA (15:24)
--- NOTE | 2024-11-12 15:49 | ED Physician Documentation ---
History of Present Illness Stated complaint Stated Complaint: N/V/D Chief complaint Chief Complaint: Abd Pain History obtained from History obtained from: Patient History of Present Illness Timing: Prior to arrival Additonal information Additional information: Patient is a 63 yo female presenting To the emergency department by ambulance with repetitive nausea and vomiting diarrhea patient was seen about 1 week ago for the symptoms was discharged home with nausea medication she did not. She did not diarrhea at home no black or bloody stools that she describes as liquidy diarrhea. She had reassuring labs and vitals when she was seen here about a week ago. No fevers or chills recently. She has had dry cough at home as well. Meds/Allgy Home Medications Ambulatory Orders Medication Instructions Recorded Confirmed fluoxetine 40 mg capsule (Prozac) 40 mg PO DAILY 09/27/23 11/12/24 meloxicam 7.5 mg tablet 7.5 mg PO DAILY PRN Pain 1-4 #90 11/01/24 11/12/24 tabs ondansetron HCl 4 mg tablet 4 mg PO Q8H PRN nausea and 11/09/24 11/12/24 vomiting #10 tabs promethazine 25 mg tablet 25 mg PO TID PRN nausea and 11/09/24 11/12/24 vomiting #10 tabs Allergies Allergies Allergy/AdvReac Type Severity Reaction Status Date / Time No Known Drug Allergies Allergy Verified 11/12/24 12:59 PFSH Medical History Medical History Arthritis Social History Social History (Updated 11/12/24 @ 13:16 by Shelby Mcknight RN) Smoking Status: Never smoker Do you dip or chew tobacco?: No Do you vape?: No Living arrangement: At home Living Condition: With family Support Person: No Relationship: Level: Assisted Do you feel safe in your home environment?: Yes Suffered physical, verbal, emotional, or financial abuse?: No History of Abuse: No Substance Use: cannabis (any form) POLST Patient has POLST: No Exam Constitutional normal general appearance HENMT normocephalic Eyes PERRL and EOMs intact bilaterally Neck/C-Spine visual inspection normal Lymph no lymphadenopathy noted Chest inspection of chest normal Respiratory breath sounds equal bilaterally and normal respiratory effort Bilateral crackles on auscultation of the lungs. Cardiovascular normal heart rate noted, regular rhythm noted, no gallop and no rub Gastrointestinal abdomen normal to inspection No abdominal tenderness abdomen is soft rebound or guarding no CVA tenderness no distention or masses or fluid wave. Results Vitals Vitals: Vital Signs - 24 hr 11/13/24 00:40 11/13/24 04:45 11/13/24 09:00 Temperature 36.7 C 36.6 C 36.6 C Temperature Source Temporal Artery Scan Temporal Artery Scan Temporal Artery Scan Pulse Rate [Monitoring electrodes] 81 77 81 Respiratory Rate 20 20 18 Blood Pressure [Right Brachial artery] 136/70 H 144/76 H 113/72 O2 Saturation 94 96 92 O2 Source Nasal cannula Nasal cannula Nasal cannula If not protocol: Oxygen Flow, liters/minute 2 2 Sedation scale 0-Fully awake 0-Fully awake 0-Fully awake Pain Intensity 0 Pain Intensity [Abdomen] Pain Intensity [generalized] 11/13/24 11:44 11/13/24 12:00 11/13/24 12:44 Temperature 36.5 C Temperature Source Temporal Artery Scan Pulse Rate [Monitoring electrodes] 80 Respiratory Rate 16 Blood Pressure [Right Brachial artery] 138/75 H O2 Saturation 94 O2 Source Nasal cannula If not protocol: Oxygen Flow, liters/minute 1 Sedation scale 0-Fully awake Pain Intensity 4 0 Pain Intensity [Abdomen] 4 Pain Intensity [generalized] 4 Oxygen O2 Source Nasal cannula Labs Labs: Microbiology 11/12/24 18:10 Urine Culture - Preliminary Urine,Random CULTURE IN PROGRESS. RESULTS TO FOLLOW. Laboratory Tests 11/12/24 11/12/24 11/13/24 13:48 18:10 06:16 WBC 9.6 9.7 RBC 4.59 4.27 Hgb 13.4 12.2 Hct 41.0 38.1 MCV 89.3 89.2 MCH 29.2 28.6 MCHC 32.7 32.0 RDW 13.2 13.4 Plt Count 125 L 130 MPV 11.7 H 11.8 H Neut # (Auto) 8.3 H 7.7 H Lymph # (Auto) 0.5 L 1.1 L [place] # (Auto) 0.8 0.8 Eos # (Auto) 0.0 0.0 Baso # (Auto) 0.0 0.0 Absolute Nucleated RBC 0.00 0.00 Nucleated RBC % 0.0 0.0 Sodium 141 140 Potassium 3.2 L 3.2 L Chloride 105 104 Carbon Dioxide 27 30 Anion Gap 9.0 6.0 BUN 10 10 Creatinine 0.6 0.6 Estimated GFR (MDRD) 101 101 Glucose 137 H 116 H Estimat Average Glucose 117 H Hemoglobin A1c % 5.7 Calcium 8.6 8.7 Total Bilirubin 0.6 AST 29 ALT 36 Alkaline Phosphatase 70 Total Protein 6.4 Albumin 3.8 Globulin 2.6 Albumin/Globulin Ratio 1.5 Lipase 24 Urine Color YELLOW Urine Clarity HAZY Urine pH 6.5 Ur Specific [place] 1.025 Urine Protein 30 H Urine Glucose (UA) NEGATIVE Urine Ketones 40 H Urine Occult Blood SMALL H Urine Nitrite POSITIVE H Urine Bilirubin NEGATIVE Urine Urobilinogen 0.2 (NORMAL) Ur Leukocyte Esterase TRACE H Urine RBC 0-5 Urine WBC 0-3 Ur Squamous Epith Cells FEW Squamous Amorphous Sediment Few Urine Bacteria Moderate H Ur Microscopic Review INDICATED Urine Culture Comments INDICATED Nasal Screen MRSA (PCR) 11/13/24 08:48 WBC RBC Hgb Hct MCV MCH MCHC RDW Plt Count MPV Neut # (Auto) Lymph # (Auto) [place] # (Auto) Eos # (Auto) Baso # (Auto) Absolute Nucleated RBC Nucleated RBC % Sodium Potassium Chloride Carbon Dioxide Anion Gap BUN Creatinine Estimated GFR (MDRD) Glucose Estimat Average Glucose Hemoglobin A1c % Calcium Total Bilirubin AST ALT Alkaline Phosphatase Total Protein Albumin Globulin Albumin/Globulin Ratio Lipase Urine Color Urine Clarity Urine pH Ur Specific [place] Urine Protein Urine Glucose (UA) Urine Ketones Urine Occult Blood Urine Nitrite Urine Bilirubin Urine Urobilinogen Ur Leukocyte Esterase Urine RBC Urine WBC Ur Squamous Epith Cells Amorphous Sediment Urine Bacteria Ur Microscopic Review Urine Culture Comments Nasal Screen MRSA (PCR) NEGATIVE PD Medical Decision Making ED course Complexity details: reviewed old records and reviewed results ED course: Patient 63-year-old female presents to the emergency department for nausea vomiting diarrhea that has been going on for over a week she has had 1 week ago symptoms discharged home. Labs here in the emergency department show no significant leukocytosis patient is mildly hypokalemic will replace here in the emergency department. CXRObtained here in the ED for bilateral crackles on auscultation of the lungs and persistent oxygen here in the ED.: Right-sided infiltrate, which is worse within the right upper lobe compared to the prior examination and improved within the right perihilar region compared to the prior images. Patient remains on 2 L nasal cannula here in the emergency return at home she continuingly desats to 88% while still on the 2 L nasal cannula. Discussed case with hospitalist would like to admit patient for right-sided pneumonia with acute hypoxic respiratory failure. Hospitalist agreeable with this plan patient did receive 1 dose of IV antibiotics here in the ED. No recent antibiotic use, no recent travel. She has no other sick contacts. Discharge Plan Discharge Patient Disposition: 66 [facility] DC/Xfer Condition: Good Clinical Impression: Gastroenteritis and colitis, viral, Nausea vomiting and diarrhea, Pneumonia, Acute and chronic respiratory failure with hypoxia Interventions: ED Admission Assessment Last Done: 11/12/24 18:22
[2024-11-12] MEDS: cefTRIAXone 1 GM VIAL IVP STA (16:00)
[2024-11-12] MEDS: FAMOTIDINE 20 MG/2 ML VIAL IVP STA (16:00)
[2024-11-12] MEDS: ONDANSETRON 4 MG/2 ML VIAL IVP STA (16:46)
[2024-11-12] MEDS: DOXYCYCLINE INJ 100 MG in SODIUM CHLORIDE 0.9% MINIBAG 100 ML IV STA (16:48)
--- NOTE | 2024-11-12 17:15 | HISTORY & PHYSICAL EXAMINATION ---
Chief Complaint Chief Complaint Chief Complaint: n/v/d History of Present Illness Admitted From Admitted From:: home History Obtained From Records Reviewed: last PCP visit Jun 2024 History obtained from: Patient History of Present Illness HPI Comment/Other: 63-year-old female with history of rheumatoid arthritis presents to the emergency department complaining of nausea vomiting and watery stools for several days now. She has been sick with a viral upper respiratory infection and coughing for several weeks now. She presented today because her nausea and vomiting was so severe. She has a past medical history of rheumatoid arthritis treated with meloxicam and sleep apnea. She has not been using her CPAP for the last 4 to 6 weeks because her dog chewed the hose She was seen in our emergency department for the same complaints 3 days ago. She was discharged to home with prescriptions for Zofran and promethazine. She cannot recall who her PCP is but in researching it she sees Lucy Mason at our [facility]. She endorses full CODE STATUS. Meds/Allgy Home Medications Ambulatory Orders Medication Instructions Recorded Confirmed fluoxetine 40 mg capsule (Prozac) 40 mg PO DAILY 09/27/23 11/12/24 meloxicam 7.5 mg tablet 7.5 mg PO DAILY PRN Pain 1-4 #90 11/01/24 11/12/24 tabs ondansetron HCl 4 mg tablet 4 mg PO Q8H PRN nausea and 11/09/24 11/12/24 vomiting #10 tabs promethazine 25 mg tablet 25 mg PO TID PRN nausea and 11/09/24 11/12/24 vomiting #10 tabs Allergies Allergies Allergy/AdvReac Type Severity Reaction Status Date / Time No Known Drug Allergies Allergy Verified 11/12/24 12:59 PFSH Medical History Medical History Arthritis Social History Social History (Updated 11/12/24 @ 13:16 by Shelby Mcknight RN) Smoking Status: Never smoker Do you dip or chew tobacco?: No Do you vape?: No Living arrangement: At home Living Condition: With family Support Person: No Relationship: Level: Assisted Do you feel safe in your home environment?: Yes Suffered physical, verbal, emotional, or financial abuse?: No History of Abuse: No Substance Use: cannabis (any form) POLST Patient has POLST: No Review of Systems Status of ROS: 10 or more systems reviewed and unremarkable except as noted in history and below Constitutional Reports: Fatigue, Malaise and Changes in appetite or eating habits; Denies: Fever Eyes Denies: Change in vision Ears, nose, mouth, and throat Reports: Nasal discharge, Nasal congestion and Throat pain; Denies: Hearing loss Cardiovascular Denies: Irregular heart rate, chest pain, palpitations, edema or shortness of breath when lying down Respiratory Reports: Cough, Sputum production and Wheezing Gastrointestinal Reports: Abdominal pain (releived with zofran), Nausea, Vomiting, Poor appetite and Diarrhea; Denies: Nico blood emesis, Coffee grounds in vomit or Heartburn Genitourinary Reports: Urinary incontinence (when she coughs) Musculoskeletal Denies: Muscle aches or Muscle cramps Integumentary/Breast Denies: Rash Neurological Reports: Headache Endocrine Reports: Fatigue Hematologic/Lymphatic Denies: Easy bleeding Allergic/Immunologic Reports: Wheezing Prior Level of Functionality: retired secondary to arthritis. lives with a room mate. Exam Constitutional looks like she feels poorly HENMT normocephalic, nasal mucous membranes normal and oral mucous membranes normal Eyes conjunctivae normal and no scleral icterus Lymph no lymphadenopathy noted Respiratory breath sounds equal bilaterally and wheezing noted (bilateral diffuse wheeze and rhonchi) Cardiovascular normal heart rate noted and no murmur Gastrointestinal abdomen normal to inspection and abdomen soft to palpation Genitourinary no CVA tenderness Back/Pelvis spine normal to inspection Extremities normal to inspection Neurology head of talent management II-XII intact, no focal motor deficit noted and GCS 15 Psychiatry mental status grossly normal, oriented x3, thought process normal and cooperative Skin skin color normal and no rash Conclusion/Plan Problem List (1) Acute hypoxic respiratory failure: Plan: Acute hypoxic respiratory failure. Presents to the emergency department with an oxygen saturation of 88% on 1 L via nasal cannula. Has been treated in the field with oxygen by EMS. She has been coughing for several weeks. Imaging shows a right sided infiltrate worse in the right upper lobe. Previous chest imaging with which this is compared is over a-year-old. She has no history of underlying chronic lung disease. She is not a smoker. She occasionally smokes marijuana but has not done this in quite some time. She has no leukocytosis. She has been coughing for several weeks. DuoNebs in the emergency department have helped her symptoms somewhat. I will admit the patient for acute hypoxic respiratory failure. She will get supplemental oxygen. She will get treatment with Rocephin and azithromycin for her community-acquired pneumonia. She will be given albuterol and Atrovent treatments. She does not have any paroxysmal nocturnal dyspnea she has not had any swelling in her feet and ankles. She had an echocardiogram in February 2024 which was within normal limits. I discussed this patient with ED RAVINDRA Moreira and decision was made to admit her to observation status. I think it is reasonable that she will stay less than 2 midnights. (2) Pneumonia: Plan: Community-acquired pneumonia. Patient admitted for similar in September 2023 and recovered well from this. I will treat her with azithromycin she is day 1 of 3. I will treat her with Rocephin she is day 1 of 5. no leukocytosis. I have ordered repeat CBC for the AM. (3) Nausea vomiting and diarrhea: Plan: Nausea vomiting and diarrhea. This has been ongoing for quite a few days. She is having some watery stools at home. She is having urinary incontinence when she coughs. She is having nausea and vomiting. She feels remarkably better after 1 dose of Zofran. But it seems that her nausea has returned quite quickly. I am treating her nausea with Zofran and Compazine as a second line agent. She is also complaining of pain in her abdomen and ribs. Her abdominal exam is soft and nontender. I think is secondary to all the coughing. I have ordered stool samples when she does have a stool she has not been on antibiotics recently she denies any sick contacts. I am starting her on a clear liquid diet. This can be advanced as tolerated. At this time she wants nothing more than clears. Due to no remarkable electrolyte abnormalities and no evidence of acute kidney injury I will not be giving this patient IV fluids as there is a national shortage. (4) Sleep apnea: Plan: She does not have functional sleep apnea treatment at this time. She is awaiting a new hose. Unfortunately hers was destroyed and she is unable to afford to pay mcdaniels for a new 1. (5) Rheumatoid arthritis: Plan: Recent diagnosis in the last year or so rheumatoid arthritis. She is on meloxicam for this. I will be holding her meloxicam while she is here in the hospital as it can be irritating to the GI tract. (6) Depression: Plan: Longstanding depression on fluoxetine I am reinstituting her home medication of fluoxetine. Plan I have spent 85 minutes in the care of this patient today. This includes time [id number], review and ordering of diagnostic imaging and laboratory studies and consultation with other providers. Monitoring the patient's signs symptoms, evaluation of medication effectiveness and patient's response to treatment. Lab Results Lab results reviewed: Yes 11/12/24 13:48 11/12/24 13:48 Diagnostic Imaging Results Diagnostic Imaging Results: positive Final report reviewed
[2024-11-12] MEDS: PROCHLORPERAZINE 10 MG/2 ML VIAL IVP STA (17:58)
[2024-11-12] MEDS: HYDROmorphone 0.5 MG/0.5 ML SYRINGE IVP STA (17:58)
[2024-11-12] MEDS ORDERED: IPRATROPIUM/ALBUTEROL 3 ML NEB INH PRN (18:23)
[2024-11-12] MEDS ORDERED: PROCHLORPERAZINE 10 MG/2 ML VIAL IVP PRN (18:23)
[2024-11-12] MEDS ORDERED: SODIUM CHLORIDE FLUSH 0.9% 10 ML SYRINGE IVP PRN (18:23)
[2024-11-12] MEDS ORDERED: MELOXICAM 7.5 MG TABLET PO PRN (18:23)
[2024-11-12 18:48] LABS: BILIRUBIN,URINE NEGATIVE (NEGATIVE); GLUCOSE, URINE (UA) NEGATIVE (NEGATIVE); KETONES,URINE (UA) 40 mg/dL (NEGATIVE); LEUKOCYTE ESTERASE, URINE TRACE (NEGATIVE); NITRITE,URINE POSITIVE (NEGATIVE); OCCULT BLOOD,URINE SMALL (NEGATIVE); PH,URINE 6.5 PH (5.0-7.5); PROTEIN,URINE 30 mg/dL (NEGATIVE); UROBILINOGEN,URINE 0.2 (NORMAL) E.U./dL (NORMAL)
[2024-11-12 18:49] LABS: CLARITY,URINE HAZY (CLEAR)
[2024-11-12] MEDS: AZITHROMYCIN INJ 500 MG in SODIUM CHLORIDE 0.9% 250 ML IV SCH (18:57)
[2024-11-12] MEDS: SODIUM CHLORIDE FLUSH 0.9% 10 ML SYRINGE IVP SCH (18:58)
[2024-11-12 19:01] LABS: RBC,URINE 0-5 /HPF (0-5); WBC,URINE 0-3 /HPF (0-5)
[2024-11-12 19:02] LABS: AMORPHOUS SEDIMENT,UR Few /LPF; BACTERIA,URINE Moderate /HPF (None Seen); SQUAMOUS EPITHELIAL CELL,UR FEW Squamous (<= Few)
[2024-11-13 06:55] LABS: BASOPHILS % (AUTO) 0.1 %; HCT - HEMATOCRIT 38.1 % (37.0-47.0); HGB - HEMOGLOBIN 12.2 g/dL (12.0-16.0); LYMPHOCYTES # (AUTO) 1.1 10^3/uL (1.5-3.5); MEAN CORPUSCULAR HEMOGLOBIN 28.6 pg (27.0-31.0); MEAN CORPUSCULAR VOLUME 89.2 fL (81.0-99.0); MEAN PLATELET VOLUME 11.8 fL (7.9-10.8); MONOCYTES # (AUTO) 0.8 10^3/uL (0.0-1.0); MONOCYTES % (AUTO) 8.7 %; NEUTROPHILS # (AUTO) 7.7 10^3/uL (1.5-6.6); NEUTROPHILS % (AUTO) 79.8 %; PLT - PLATELET COUNT 130 10^3/uL (130-450); RED BLOOD COUNT 4.27 10^6/uL (4.20-5.40); RED CELL DISTRIBUTION WIDTH 13.4 % (12.0-15.0); WHITE BLOOD COUNT 9.7 x10^3/uL (4.8-10.8)
[2024-11-13 07:11] LABS: CALCIUM 8.7 mg/dL (8.5-10.3); CREATININE 0.6 mg/dL (0.6-1.3); POTASSIUM 3.2 mmol/L (3.5-4.5)
[2024-11-13] MEDS: FLUoxetine 10 MG CAPSULE PO SCH (08:25)
[2024-11-13] MEDS: ENOXAPARIN 40 MG/0.4 ML SYRINGE SUBQ SCH (08:26)
[2024-11-13] MEDS: POTASSIUM CHLORIDE 20 MEQ TABLET PO ONE (11:21)
[2024-11-13] MEDS ORDERED: POTASSIUM CHLORIDE 20 MEQ TABLET PO ONE (11:33)
[2024-11-13] MEDS: ONDANSETRON 4 MG/2 ML VIAL IVP PRN (11:44)
[2024-11-13] MEDS: ACETAMINOPHEN 325 MG TABLET PO PRN (11:44)
--- NOTE | 2024-11-13 13:52 | PROVIDER PROGRESS NOTE ---
Subjective Prog Note Date Prog Note Date: 11/13/24 Subjective Subjective: She is coughing lots, but starting to feel better. remains nauseated without vomting today. Nebs ordered PRN ,but she is not getting them. She has weaned down to 1L NC briefly, but needed to go back up to 2L at rest. she expresses concerns about her current living situation, and plans to move in with her daugher in [place]. Current Medications Current Medications Current Medications: Current Medications Generic Name Dose Route Start Last Admin Trade Name Freq PRN Reason Stop Dose Admin Acetaminophen 650 mg 11/12/24 18:23 11/13/24 11:44 Acetaminophen 325 Mg Tablet PO 650 mg Q4HR PRN Administration Pain 1 to 4, or Fever Albuterol/Ipratropium 3 ml 11/12/24 18:23 Ipratropium/Albuterol 3 Ml Neb INH Q4HR PRN Wheezing Ceftriaxone Sodium 1 gm 11/13/24 16:00 Ceftriaxone 1 Gm Vial IVP Q24H HARSHA Enoxaparin Sodium 40 mg 11/13/24 09:00 11/13/24 08:26 Enoxaparin 40 Mg/0.4 Ml Syringe SUBQ Not Given DAILY HARSHA Fluoxetine HCl 40 mg 11/13/24 09:00 11/13/24 08:25 Fluoxetine 10 Mg Capsule PO 40 mg DAILY HARSHA Administration Azithromycin 500 mg/ Sodium 250 mls @ 250 mls/hr 11/12/24 18:00 11/12/24 20:00 Chloride IV 11/14/24 18:59 Infused Q24H HARSHA Infusion Meloxicam 7.5 mg 11/12/24 18:23 Meloxicam 7.5 Mg Tablet PO DAILY PRN Pain 1-4 Ondansetron HCl 4 mg 11/12/24 18:23 11/13/24 11:44 Ondansetron 4 Mg/2 Ml Vial IVP 4 mg Q6HR PRN Administration Nausea / Vomiting Prochlorperazine Edisylate 10 mg 11/12/24 18:23 Prochlorperazine 10 Mg/2 Ml Vial IVP Q6HR PRN Nausea / Vomiting Sodium Chloride 10 ml 11/12/24 18:23 Sodium Chloride Flush 0.9% 10 Ml Syringe IVP PRN PRN NEEDED PER PROVIDER ORDERS Sodium Chloride 10 ml 11/12/24 18:23 11/13/24 08:26 Sodium Chloride Flush 0.9% 10 Ml Syringe IVP 10 ml 0100,0900,1700 HARSHA Administration Objective Vital Signs/Intake & Output Reviewed Vital Signs: Yes Vital Signs: Vital Signs x48h Temp Pulse Resp BP Pulse Ox O2 Flow Rate 11/13/24 12:44 36.5 C 80 16 138/75 H 94 1 11/13/24 09:00 36.6 C 81 18 113/72 92 2 Intake & Output: Intake & Output 11/10/24 11/11/24 11/12/24 11/13/24 23:59 23:59 23:59 23:59 Intake Total 690 / 690 220 / 220 Output Total 200 / 200 Balance 690 / 690 / Weight (kg) 84.3 kg Objective General Appearance: positive No acute distress and Alert Eyes Bilateral: positive Normal inspection ENT: positive ENT inspection nml Neck: positive Nml inspection Respiratory: positive Chest non-tender, No respiratory distress, Wheezes (expiratory ) and Rhonchi Cardiovascular: positive Regular rate & rhythm Abdomen: positive Non-tender and No distention Skin: positive Color nml and No rash Extremities: positive Non-tender and No pedal edema Neurologic/Psychiatric: positive Oriented x3 Lab Results 11/13/24 06:16 11/13/24 06:16 Other Labs: Lab Results x24hrs 11/13/24 11/13/24 11/12/24 Range/Units 08:48 06:16 18:10 WBC 9.7 (4.8-10.8) x10^3/uL RBC 4.27 (4.20-5.40) 10^6/uL Hgb 12.2 (12.0-16.0) g/dL Hct 38.1 (37.0-47.0) % MCV 89.2 (81.0-99.0) fL MCH 28.6 (27.0-31.0) pg MCHC 32.0 (32.0-36.0) g/dL RDW 13.4 (12.0-15.0) % Plt Count 130 (130-450) 10^3/uL MPV 11.8 H (7.9-10.8) fL Neut # (Auto) 7.7 H (1.5-6.6) 10^3/uL Lymph # (Auto) 1.1 L (1.5-3.5) 10^3/uL [place] # (Auto) 0.8 (0.0-1.0) 10^3/uL Eos # (Auto) 0.0 (0.0-0.7) 10^3/uL Baso # (Auto) 0.0 (0.0-0.1) 10^3/uL Absolute Nucleated RBC 0.00 x10^3/uL Nucleated RBC % 0.0 /100WBC Sodium 140 (135-145) mmol/L Potassium 3.2 L (3.5-4.5) mmol/L Chloride 104 (101-111) mmol/L Carbon Dioxide 30 (21-32) mmol/L Anion Gap 6.0 (6-13) BUN 10 (6-20) mg/dL Creatinine 0.6 (0.6-1.3) mg/dL Estimated GFR (MDRD) 101 (>89) Glucose 116 H (74-104) mg/dL Calcium 8.7 (8.5-10.3) mg/dL Total Bilirubin (0.2-1.0) mg/dL AST (10-42) IU/L ALT (10-60) IU/L Alkaline Phosphatase (42-121) IU/L Total Protein (6.4-8.9) g/dL Albumin (3.2-5.5) g/dL Globulin (2.1-4.2) g/dL Albumin/Globulin Ratio (1.0-2.2) Lipase (11-82) U/L Urine Color YELLOW Urine Clarity HAZY (CLEAR) Urine pH 6.5 (5.0-7.5) PH Ur Specific [place] 1.025 (1.002-1.030) Urine Protein 30 H (NEGATIVE) mg/dL Urine Glucose (UA) NEGATIVE (NEGATIVE) mg/dL Urine Ketones 40 H (NEGATIVE) mg/dL Urine Occult Blood SMALL H (NEGATIVE) Urine Nitrite POSITIVE H (NEGATIVE) Urine Bilirubin NEGATIVE (NEGATIVE) Urine Urobilinogen 0.2 (NORMAL) (NORMAL) E.U./dL Ur Leukocyte Esterase TRACE H (NEGATIVE) Urine RBC 0-5 (0-5) /HPF Urine WBC 0-3 (0-5) /HPF Ur Squamous Epith Cells FEW Squamous (<= Few) Amorphous Sediment Few /LPF Urine Bacteria Moderate H (None Seen) /HPF Ur Microscopic Review INDICATED Urine Culture Comments INDICATED Nasal Screen MRSA (PCR) NEGATIVE (NEGATIVE) 11/12/24 Range/Units 13:48 WBC 9.6 (4.8-10.8) x10^3/uL RBC 4.59 (4.20-5.40) 10^6/uL Hgb 13.4 (12.0-16.0) g/dL Hct 41.0 (37.0-47.0) % MCV 89.3 (81.0-99.0) fL MCH 29.2 (27.0-31.0) pg MCHC 32.7 (32.0-36.0) g/dL RDW 13.2 (12.0-15.0) % Plt Count 125 L (130-450) 10^3/uL MPV 11.7 H (7.9-10.8) fL Neut # (Auto) 8.3 H (1.5-6.6) 10^3/uL Lymph # (Auto) 0.5 L (1.5-3.5) 10^3/uL [place] # (Auto) 0.8 (0.0-1.0) 10^3/uL Eos # (Auto) 0.0 (0.0-0.7) 10^3/uL Baso # (Auto) 0.0 (0.0-0.1) 10^3/uL Absolute Nucleated RBC 0.00 x10^3/uL Nucleated RBC % 0.0 /100WBC Sodium 141 (135-145) mmol/L Potassium 3.2 L (3.5-4.5) mmol/L Chloride 105 (101-111) mmol/L Carbon Dioxide 27 (21-32) mmol/L Anion Gap 9.0 (6-13) BUN 10 (6-20) mg/dL Creatinine 0.6 (0.6-1.3) mg/dL Estimated GFR (MDRD) 101 (>89) Glucose 137 H (74-104) mg/dL Calcium 8.6 (8.5-10.3) mg/dL Total Bilirubin 0.6 (0.2-1.0) mg/dL AST 29 (10-42) IU/L ALT 36 (10-60) IU/L Alkaline Phosphatase 70 (42-121) IU/L Total Protein 6.4 (6.4-8.9) g/dL Albumin 3.8 (3.2-5.5) g/dL Globulin 2.6 (2.1-4.2) g/dL Albumin/Globulin Ratio 1.5 (1.0-2.2) Lipase 24 (11-82) U/L Urine Color Urine Clarity (CLEAR) Urine pH (5.0-7.5) PH Ur Specific [place] (1.002-1.030) Urine Protein (NEGATIVE) mg/dL Urine Glucose (UA) (NEGATIVE) mg/dL Urine Ketones (NEGATIVE) mg/dL Urine Occult Blood (NEGATIVE) Urine Nitrite (NEGATIVE) Urine Bilirubin (NEGATIVE) Urine Urobilinogen (NORMAL) E.U./dL Ur Leukocyte Esterase (NEGATIVE) Urine RBC (0-5) /HPF Urine WBC (0-5) /HPF Ur Squamous Epith Cells (<= Few) Amorphous Sediment /LPF Urine Bacteria (None Seen) /HPF Ur Microscopic Review Urine Culture Comments Nasal Screen MRSA (PCR) (NEGATIVE) ABX Reporting Has patient been on IV antibiotics over the past 48 hours?: Yes Assessment/Plan Problem List (1) Acute hypoxic respiratory failure: Impression: Secondary to CAP. She has been on 1-2 L oxygen since admit. She feels that she would benefit from neb treatments. I have ordered these schduled QID. (2) Pneumonia: Impression: Day 2/3 azithromycin, Day 2/5 rocephin. Continues to have adventitious breath sounds on exam. I have added decadron,as well as scheduled nebs. (3) Nausea vomiting and diarrhea: Impression: Her appetite is improving and I have advanced her diet to regular from clears. her appetite is poor but she is tolerating this. She has given a stool sample, and result is pending. (4) Sleep apnea: Impression: She does not have functional sleep apnea treatment at this time. She is awaiting a new hose. Unfortunately hers was destroyed and she is unable to afford to pay mcdaniels for a new 1. (5) Rheumatoid arthritis: Impression: Recent diagnosis in the last year or so rheumatoid arthritis. She is on meloxicam for this. I will be holding her meloxicam while she is here in the hospital as it can be irritating to the GI tract. (6) Depression: Impression: Longstanding depression on fluoxetine I have restarted her home medication of fluoxetine. I have spent 38 minutes in the care of this patient today. This includes time [id number], review and ordering of diagnostic imaging and laboratory studies.. Monitoring the patient's signs symptoms, evaluation of medication effectiveness and patient's response to treatment.
[2024-11-13 14:24] LABS: ESTIMATED AVERAGE GLUCOSE 117 mg/dL (70-100); HEMOGLOBIN A1c% 5.7 % (4.27-6.07)
[2024-11-13] MEDS: cefTRIAXone 1 GM VIAL IVP SCH (16:27)
[2024-11-13] MEDS: dexAMETHasone 4 MG TABLET PO ONE (16:27)
--- NOTE | 2024-11-13 17:31 | PHARMACY PROGRESS NOTE ---
Best Possible Medication History Admit Date and Time: 11/13/24 1350 Home Medications Medication Instructions Recorded Confirmed Type fluoxetine 40 mg capsule (Prozac) 40 mg PO DAILY 09/27/23 11/12/24 History meloxicam 7.5 mg tablet 7.5 mg PO DAILY PRN Pain 1-4 #90 11/01/24 11/12/24 Rx tabs ondansetron HCl 4 mg tablet 4 mg PO Q8H PRN nausea and 11/09/24 11/12/24 Rx vomiting #10 tabs promethazine 25 mg tablet 25 mg PO TID PRN nausea and 11/09/24 11/12/24 Rx vomiting #10 tabs Processed by: Pharmacy Medications reviewed in ED?: Yes Medication History completed: Yes Patient Interview: Completed Secondary Source(s): Pharmacy records and Insurance records [facility] Statement: As the person ultimately responsible for medication therapy, providers are able to order a medication from an existing home medication list in [facility] via the "Reconcile Routine" prior to Confirmation of that medication by bioinformatics support specialist. Such practice is discouraged except when the physician, in their clinical judgment, deems that a medical need exists for a medication without regard to previous use.
[2024-11-13] MEDS: IPRATROPIUM/ALBUTEROL 3 ML NEB INH SCH (19:35)
[2024-11-13] MEDS: guaiFENesin 600 MG TABLET PO SCH (23:33)
[2024-11-14 05:45] LABS: HCT - HEMATOCRIT 36.7 % (37.0-47.0); HGB - HEMOGLOBIN 12.1 g/dL (12.0-16.0); LYMPHOCYTES # (AUTO) 0.6 10^3/uL (1.5-3.5); LYMPHOCYTES % (AUTO) 11.4 %; MEAN CORPUSCULAR HEMOGLOBIN 29.1 pg (27.0-31.0); MEAN CORPUSCULAR VOLUME 88.2 fL (81.0-99.0); MEAN PLATELET VOLUME 11.7 fL (7.9-10.8); MONOCYTES # (AUTO) 0.2 10^3/uL (0.0-1.0); MONOCYTES % (AUTO) 4.1 %; NEUTROPHILS # (AUTO) 4.1 10^3/uL (1.5-6.6); NEUTROPHILS % (AUTO) 83.7 %; PLT - PLATELET COUNT 151 10^3/uL (130-450); RED BLOOD COUNT 4.16 10^6/uL (4.20-5.40); RED CELL DISTRIBUTION WIDTH 13.2 % (12.0-15.0); WHITE BLOOD COUNT 4.9 x10^3/uL (4.8-10.8)
[2024-11-14 06:01] LABS: CALCIUM 9.3 mg/dL (8.5-10.3); CREATININE 0.6 mg/dL (0.6-1.3); POTASSIUM 3.7 mmol/L (3.5-4.5)
[2024-11-14 06:09] LABS: ADENOVIRUS F 40/41 Not Detected (Not Detected); ASTROVIRUS Not Detected (Not Detected); C DIFFICILE TOXIN A/B Not Detected (Not Detected); CAMPYLOBACTER Not Detected (Not Detected); CRYPTOSPORIDIUM Not Detected (Not Detected); CYCLOSPORA CAYETANENSIS Not Detected (Not Detected); ENTAMOEBA HISTOLYTICA Not Detected (Not Detected); ENTEROAGGREGATIVE E COLI Not Detected (Not Detected); ENTEROPATHOGENIC E COLI Not Detected (Not Detected); ENTEROTOXIGENIC E COLI Not Detected (Not Detected); GIARDIA LAMBLIA Not Detected (Not Detected); NOROVIRUS GI/GII Not Detected (Not Detected); PLESIOMONAS SHIGELLOIDES Not Detected (Not Detected); ROTAVIRUS A Not Detected (Not Detected); SALMONELLA Not Detected (Not Detected); SAPOVIRUS Not Detected (Not Detected); SHIGA-TOXIN-PRODUCING E COLI Not Detected (Not Detected); SHIGELLA/ENTEROINVASIVE E COLI Not Detected (Not Detected); VIBRIO Not Detected (Not Detected); VIBRIO CHOLERAE Not Detected (Not Detected); YERSINIA ENTEROCOLITICA Not Detected (Not Detected)
[2024-11-14] MEDS: dexAMETHasone 4 MG TABLET PO SCH (09:25)
[2024-11-14] MEDS: LOPERAMIDE 2 MG CAPSULE PO PRN (10:45)
--- NOTE | 2024-11-14 11:25 | PROVIDER PROGRESS NOTE ---
Current Medications Current Medications Current Medications: Current Medications Generic Name Dose Route Start Last Admin Trade Name Freq PRN Reason Stop Dose Admin Acetaminophen 650 mg 11/12/24 18:23 11/13/24 11:44 Acetaminophen 325 Mg Tablet PO 650 mg Q4HR PRN Administration Pain 1 to 4, or Fever Albuterol/Ipratropium 3 ml 11/13/24 16:00 11/14/24 10:09 Ipratropium/Albuterol 3 Ml Neb INH Not Given QID HARSHA Ceftriaxone Sodium 1 gm 11/13/24 16:00 11/13/24 16:27 Ceftriaxone 1 Gm Vial IVP 11/16/24 16:01 1 gm Q24H HARSHA Administration Dexamethasone 6 mg 11/14/24 09:00 11/14/24 09:25 Dexamethasone 4 Mg Tablet PO 6 mg DAILY HARSHA Administration Enoxaparin Sodium 40 mg 11/13/24 09:00 11/14/24 10:41 Enoxaparin 40 Mg/0.4 Ml Syringe SUBQ Not Given DAILY HARSHA Fluoxetine HCl 40 mg 11/13/24 09:00 11/14/24 09:25 Fluoxetine 10 Mg Capsule PO 40 mg DAILY HARSHA Administration Guaifenesin 600 mg 11/13/24 22:00 11/14/24 09:25 Guaifenesin 600 Mg Tablet PO 600 mg BID HARSHA Administration Azithromycin 500 mg/ Sodium 250 mls @ 250 mls/hr 11/12/24 18:00 11/13/24 18:55 Chloride IV 11/14/24 18:59 Infused Q24H HARSHA Infusion Loperamide HCl 2 mg 11/14/24 10:27 11/14/24 10:45 Loperamide 2 Mg Capsule PO 2 mg QID PRN Administration Diarrhea Meloxicam 7.5 mg 11/12/24 18:23 Meloxicam 7.5 Mg Tablet PO DAILY PRN Pain 1-4 Ondansetron HCl 4 mg 11/12/24 18:23 11/13/24 11:44 Ondansetron 4 Mg/2 Ml Vial IVP 4 mg Q6HR PRN Administration Nausea / Vomiting Prochlorperazine Edisylate 10 mg 11/12/24 18:23 Prochlorperazine 10 Mg/2 Ml Vial IVP Q6HR PRN Nausea / Vomiting Sodium Chloride 10 ml 11/12/24 18:23 Sodium Chloride Flush 0.9% 10 Ml Syringe IVP PRN PRN NEEDED PER PROVIDER ORDERS Sodium Chloride 10 ml 11/12/24 18:23 11/14/24 09:25 Sodium Chloride Flush 0.9% 10 Ml Syringe IVP 10 ml 0100,0900,1700 [facility] Administration Objective Vital Signs/Intake & Output Reviewed Vital Signs: Yes Vital Signs: Vital Signs x48h Temp Pulse Resp BP Pulse Ox O2 Flow Rate 11/14/24 10:09 1 11/14/24 09:24 140/67 H 11/14/24 07:10 36.6 C 71 18 182/102 H 93 Intake & Output: Intake & Output 11/11/24 11/12/24 11/13/24 11/14/24 23:59 23:59 23:59 23:59 Intake Total 690 / 690 1010 / 1010 450 / 450 Output Total 200 / 200 Balance 690 / 690 810 / 810 450 / 450 Weight (kg) 84.3 kg Objective General Appearance: positive No acute distress and Alert Eyes Bilateral: positive Normal inspection ENT: positive ENT inspection nml Neck: positive Nml inspection Respiratory: positive Chest non-tender, No respiratory distress, Wheezes (expiratory ) and Rhonchi Cardiovascular: positive Regular rate & rhythm Abdomen: positive Non-tender and No distention Skin: positive Color nml and No rash Extremities: positive Non-tender and No pedal edema Neurologic/Psychiatric: positive Oriented x3 Lab Results 11/14/24 05:13 11/14/24 05:13 Other Labs: Lab Results x24hrs 11/14/24 11/13/24 11/13/24 Range/Units 05:13 08:48 06:16 WBC 4.9 (4.8-10.8) x10^3/uL RBC 4.16 L (4.20-5.40) 10^6/uL Hgb 12.1 (12.0-16.0) g/dL Hct 36.7 L (37.0-47.0) % MCV 88.2 (81.0-99.0) fL MCH 29.1 (27.0-31.0) pg MCHC 33.0 (32.0-36.0) g/dL RDW 13.2 (12.0-15.0) % Plt Count 151 (130-450) 10^3/uL MPV 11.7 H (7.9-10.8) fL Neut # (Auto) 4.1 (1.5-6.6) 10^3/uL Lymph # (Auto) 0.6 L (1.5-3.5) 10^3/uL [place] # (Auto) 0.2 (0.0-1.0) 10^3/uL Eos # (Auto) 0.0 (0.0-0.7) 10^3/uL Baso # (Auto) 0.0 (0.0-0.1) 10^3/uL Absolute Nucleated RBC 0.00 x10^3/uL Nucleated RBC % 0.0 /100WBC Sodium 140 (135-145) mmol/L Potassium 3.7 (3.5-4.5) mmol/L Chloride 106 (101-111) mmol/L Carbon Dioxide 29 (21-32) mmol/L Anion Gap 5.0 L (6-13) BUN 11 (6-20) mg/dL Creatinine 0.6 (0.6-1.3) mg/dL Estimated GFR (MDRD) 101 (>89) Glucose 159 H (74-104) mg/dL Estimat Average Glucose 117 H (70-100) mg/dL Hemoglobin A1c % 5.7 (4.27-6.07) % Calcium 9.3 (8.5-10.3) mg/dL Nasal Screen MRSA (PCR) NEGATIVE (NEGATIVE) Stl C. cayetanensis PCR (Not Detected) Stool Rotavirus A PCR (Not Detected) Stl Adenov F 40/41 PCR (Not Detected) Stool Astrovirus (PCR) (Not Detected) Stool Campylobacter PCR (Not Detected) Stl C. diff Tox A/B PCR (Not Detected) Stool Cryptosporidium PCR (Not Detected) Stl Sh Tox Pr E STEC PCR (Not Detected) Stool E coli O157 PCR (Not Detected) Stl Enterotoxigenic E PCR (Not Detected) Stool EPEC (PCR) (Not Detected) Stl E. histolytica PCR (Not Detected) Stool Giardia Lamblia PCR (Not Detected) Stl P. shigelloides PCR (Not Detected) Stool Salmonella PCR (Not Detected) Stool Sapovirus (PCR) (Not Detected) Stl Shigella/EIEC PCR (Not Detected) St Y.enterocolitica PCR (Not Detected) Stool Vibrio (PCR) (Not Detected) Stl Vibrio cholerae PCR (Not Detected) Stl Enteroaggr Ecoli PCR (Not Detected) Stl Norovirus GI/GII PCR (Not Detected) 11/12/24 Range/Units 08:35 WBC (4.8-10.8) x10^3/uL RBC (4.20-5.40) 10^6/uL Hgb (12.0-16.0) g/dL Hct (37.0-47.0) % MCV (81.0-99.0) fL MCH (27.0-31.0) pg MCHC (32.0-36.0) g/dL RDW (12.0-15.0) % Plt Count (130-450) 10^3/uL MPV (7.9-10.8) fL Neut # (Auto) (1.5-6.6) 10^3/uL Lymph # (Auto) (1.5-3.5) 10^3/uL [place] # (Auto) (0.0-1.0) 10^3/uL Eos # (Auto) (0.0-0.7) 10^3/uL Baso # (Auto) (0.0-0.1) 10^3/uL Absolute Nucleated RBC x10^3/uL Nucleated RBC % /100WBC Sodium (135-145) mmol/L Potassium (3.5-4.5) mmol/L Chloride (101-111) mmol/L Carbon Dioxide (21-32) mmol/L Anion Gap (6-13) BUN (6-20) mg/dL Creatinine (0.6-1.3) mg/dL Estimated GFR (MDRD) (>89) Glucose (74-104) mg/dL Estimat Average Glucose (70-100) mg/dL Hemoglobin A1c % (4.27-6.07) % Calcium (8.5-10.3) mg/dL Nasal Screen MRSA (PCR) (NEGATIVE) Stl C. cayetanensis PCR Not Detected (Not Detected) Stool Rotavirus A PCR Not Detected (Not Detected) Stl Adenov F 40/41 PCR Not Detected (Not Detected) Stool Astrovirus (PCR) Not Detected (Not Detected) Stool Campylobacter PCR Not Detected (Not Detected) Stl C. diff Tox A/B PCR Not Detected (Not Detected) Stool Cryptosporidium PCR Not Detected (Not Detected) Stl Sh Tox Pr E STEC PCR Not Detected (Not Detected) Stool E coli O157 PCR Not applicable (Not Detected) Stl Enterotoxigenic E PCR Not Detected (Not Detected) Stool EPEC (PCR) Not Detected (Not Detected) Stl E. histolytica PCR Not Detected (Not Detected) Stool Giardia Lamblia PCR Not Detected (Not Detected) Stl P. shigelloides PCR Not Detected (Not Detected) Stool Salmonella PCR Not Detected (Not Detected) Stool Sapovirus (PCR) Not Detected (Not Detected) Stl Shigella/EIEC PCR Not Detected (Not Detected) St Y.enterocolitica PCR Not Detected (Not Detected) Stool Vibrio (PCR) Not Detected (Not Detected) Stl Vibrio cholerae PCR Not Detected (Not Detected) Stl Enteroaggr Ecoli PCR Not Detected (Not Detected) Stl Norovirus GI/GII PCR Not Detected (Not Detected) ABX Reporting Has patient been on IV antibiotics over the past 48 hours?: Yes Sepsis Event Note (H) Evaluation Possible source of Sepsis: positive Pulmonary Assessment/Plan Problem List (1) Acute hypoxic respiratory failure: Impression: Secondary to CAP. She has been on 1-2 L oxygen since admit. She feels that she would benefit from neb treatments. I have ordered these schduled QID. (2) Pneumonia: Impression: Day 2/3 azithromycin, Day 2/5 rocephin. Continues to have adventitious breath sounds on exam. I have added decadron,as well as scheduled nebs. (3) Nausea vomiting and diarrhea: Impression: Her appetite is improving and I have advanced her diet to regular from clears. her appetite is poor but she is tolerating this. She has given a stool sample, and result is pending. (4) Sleep apnea: Impression: She does not have functional sleep apnea treatment at this time. She is awaiting a new hose. Unfortunately hers was destroyed and she is unable to afford to pay mcdaniels for a new 1. (5) Rheumatoid arthritis: Impression: Recent diagnosis in the last year or so rheumatoid arthritis. She is on meloxicam for this. I will be holding her meloxicam while she is here in the hospital as it can be irritating to the GI tract. (6) Depression: Impression: Longstanding depression on fluoxetine I have restarted her home medication of fluoxetine. I have spent 38 minutes in the care of this patient today. This includes time [id number], review and ordering of diagnostic imaging and laboratory studies.. Monitoring the patient's signs symptoms, evaluation of medication effectiveness and patient's response to treatment. (7) Prediabetes: Impression: Laboratory Tests 11/12/24 11/13/24 11/14/24 13:48 06:16 05:13 Glucose 137 H 116 H 159 H Hemoglobin A1c % 5.7
--- NOTE | 2024-11-14 12:37 | PROVIDER PROGRESS NOTE ---
Documented by User: Lamine Davis 11/14/24 18:46 Subjective Prog Note Date Prog Note Date: 11/14/24 Prog Note Time: 09:55 Subjective Pt reports feeling: Improved Subjective: Patient is feeling much better today but stated that she was awoken overnight with bilateral flank pain that she relates to "gas". Watery loose stool this morning with no apparent blood, stool sample was collected. She states that she no longer has abdominal pain, N/V. She talked with her CPAP provider to get new tubing and mask due to her dog destroying her CPAP. She has not been able to use her CPAP for the last month. Current Medications Current Medications Current Medications: Current Medications Generic Name Dose Route Start Last Admin Trade Name Freq PRN Reason Stop Dose Admin Acetaminophen 650 mg 11/12/24 18:23 11/13/24 11:44 Acetaminophen 325 Mg Tablet PO 650 mg Q4HR PRN Administration Pain 1 to 4, or Fever Albuterol/Ipratropium 3 ml 11/13/24 16:00 11/13/24 19:35 Ipratropium/Albuterol 3 Ml Neb INH 3 ml QID HARSHA Administration Ceftriaxone Sodium 1 gm 11/13/24 16:00 11/13/24 16:27 Ceftriaxone 1 Gm Vial IVP 11/16/24 16:01 1 gm Q24H HARSHA Administration Dexamethasone 6 mg 11/14/24 09:00 11/14/24 09:25 Dexamethasone 4 Mg Tablet PO 6 mg DAILY HARSHA Administration Enoxaparin Sodium 40 mg 11/13/24 09:00 11/13/24 08:26 Enoxaparin 40 Mg/0.4 Ml Syringe SUBQ Not Given DAILY HARSHA Fluoxetine HCl 40 mg 11/13/24 09:00 11/14/24 09:25 Fluoxetine 10 Mg Capsule PO 40 mg DAILY HARSHA Administration Guaifenesin 600 mg 11/13/24 22:00 11/14/24 09:25 Guaifenesin 600 Mg Tablet PO 600 mg BID HARSHA Administration Azithromycin 500 mg/ Sodium 250 mls @ 250 mls/hr 11/12/24 18:00 11/13/24 18:55 Chloride IV 11/14/24 18:59 Infused Q24H HARSHA Infusion Meloxicam 7.5 mg 11/12/24 18:23 Meloxicam 7.5 Mg Tablet PO DAILY PRN Pain 1-4 Ondansetron HCl 4 mg 11/12/24 18:23 11/13/24 11:44 Ondansetron 4 Mg/2 Ml Vial IVP 4 mg Q6HR PRN Administration Nausea / Vomiting Prochlorperazine Edisylate 10 mg 11/12/24 18:23 Prochlorperazine 10 Mg/2 Ml Vial IVP Q6HR PRN Nausea / Vomiting Sodium Chloride 10 ml 11/12/24 18:23 Sodium Chloride Flush 0.9% 10 Ml Syringe IVP PRN PRN NEEDED PER PROVIDER ORDERS Sodium Chloride 10 ml 11/12/24 18:23 11/14/24 09:25 Sodium Chloride Flush 0.9% 10 Ml Syringe IVP 10 ml 0100,0900,1700 HARSHA Administration Objective Vital Signs/Intake & Output Reviewed Vital Signs: Yes Vital Signs: Vital Signs x48h Temp Pulse Resp BP Pulse Ox 11/14/24 09:24 140/67 H 11/14/24 07:10 36.6 C 71 18 182/102 H 93 Intake & Output: Intake & Output 11/11/24 11/12/24 11/13/24 11/14/24 23:59 23:59 23:59 23:59 Intake Total 690 / 690 1010 / 1010 450 / 450 Output Total 200 / 200 Balance 690 / 690 810 / 810 450 / 450 Weight (kg) 84.3 kg Objective General Appearance: positive No acute distress and Alert Eyes Bilateral: positive Normal inspection and PERRL ENT: positive ENT inspection nml, Pharynx nml and No signs of dehydration Neck: positive Nml inspection and No JVD Respiratory: positive Wheezes (subtle bilateral expiratory wheezes) and Other (No distress but desaturates on RA to 88%) Cardiovascular: positive Regular rate & rhythm, No murmur and No gallop; negative Irregularly irregular (Hx of A-fib, normal regular heart rate on exam) Abdomen: positive Nml bowel sounds, Tenderness (Bilateral URQ and ULQ pain to palpation. Unable to evaluate liver and spleen), Rebound (RUQ and LUQ rebound tenderness) and Other (Flank tenderness resolved by 17:00 with no recurrence ) Back: positive Nml inspection Skin: positive Color nml, Warm and Dry Extremities: positive Full ROM and Nml appearance Neurologic/Psychiatric: positive Oriented x3, Motor nml and Sensation nml Lab Results 11/14/24 05:13 11/14/24 05:13 Other Labs: Lab Results x24hrs 11/14/24 11/13/24 11/13/24 Range/Units 05:13 08:48 06:16 WBC 4.9 (4.8-10.8) x10^3/uL RBC 4.16 L (4.20-5.40) 10^6/uL Hgb 12.1 (12.0-16.0) g/dL Hct 36.7 L (37.0-47.0) % MCV 88.2 (81.0-99.0) fL MCH 29.1 (27.0-31.0) pg MCHC 33.0 (32.0-36.0) g/dL RDW 13.2 (12.0-15.0) % Plt Count 151 (130-450) 10^3/uL MPV 11.7 H (7.9-10.8) fL Neut # (Auto) 4.1 (1.5-6.6) 10^3/uL Lymph # (Auto) 0.6 L (1.5-3.5) 10^3/uL [place]pherson # (Auto) 0.2 (0.0-1.0) 10^3/uL Eos # (Auto) 0.0 (0.0-0.7) 10^3/uL Baso # (Auto) 0.0 (0.0-0.1) 10^3/uL Absolute Nucleated RBC 0.00 x10^3/uL Nucleated RBC % 0.0 /100WBC Sodium 140 (135-145) mmol/L Potassium 3.7 (3.5-4.5) mmol/L Chloride 106 (101-111) mmol/L Carbon Dioxide 29 (21-32) mmol/L Anion Gap 5.0 L (6-13) BUN 11 (6-20) mg/dL Creatinine 0.6 (0.6-1.3) mg/dL Estimated GFR (MDRD) 101 (>89) Glucose 159 H (74-104) mg/dL Estimat Average Glucose 117 H (70-100) mg/dL Hemoglobin A1c % 5.7 (4.27-6.07) % Calcium 9.3 (8.5-10.3) mg/dL Nasal Screen MRSA (PCR) NEGATIVE (NEGATIVE) Stl C. cayetanensis PCR (Not Detected) Stool Rotavirus A PCR (Not Detected) Stl Adenov F 40/41 PCR (Not Detected) Stool Astrovirus (PCR) (Not Detected) Stool Campylobacter PCR (Not Detected) Stl C. diff Tox A/B PCR (Not Detected) Stool Cryptosporidium PCR (Not Detected) Stl Sh Tox Pr E STEC PCR (Not Detected) Stool E coli O157 PCR (Not Detected) Stl Enterotoxigenic E PCR (Not Detected) Stool EPEC (PCR) (Not Detected) Stl E. histolytica PCR (Not Detected) Stool Giardia Lamblia PCR (Not Detected) Stl P. shigelloides PCR (Not Detected) Stool Salmonella PCR (Not Detected) Stool Sapovirus (PCR) (Not Detected) Stl Shigella/EIEC PCR (Not Detected) St Y.enterocolitica PCR (Not Detected) Stool Vibrio (PCR) (Not Detected) Stl Vibrio cholerae PCR (Not Detected) Stl Enteroaggr Ecoli PCR (Not Detected) Stl Norovirus GI/GII PCR (Not Detected) 11/12/24 Range/Units 08:35 WBC (4.8-10.8) x10^3/uL RBC (4.20-5.40) 10^6/uL Hgb (12.0-16.0) g/dL Hct (37.0-47.0) % MCV (81.0-99.0) fL MCH (27.0-31.0) pg MCHC (32.0-36.0) g/dL RDW (12.0-15.0) % Plt Count (130-450) 10^3/uL MPV (7.9-10.8) fL Neut # (Auto) (1.5-6.6) 10^3/uL Lymph # (Auto) (1.5-3.5) 10^3/uL Mcpherson # (Auto) (0.0-1.0) 10^3/uL Eos # (Auto) (0.0-0.7) 10^3/uL Baso # (Auto) (0.0-0.1) 10^3/uL Absolute Nucleated RBC x10^3/uL Nucleated RBC % /100WBC Sodium (135-145) mmol/L Potassium (3.5-4.5) mmol/L Chloride (101-111) mmol/L Carbon Dioxide (21-32) mmol/L Anion Gap (6-13) BUN (6-20) mg/dL Creatinine (0.6-1.3) mg/dL Estimated GFR (MDRD) (>89) Glucose (74-104) mg/dL Estimat Average Glucose (70-100) mg/dL Hemoglobin A1c % (4.27-6.07) % Calcium (8.5-10.3) mg/dL Nasal Screen MRSA (PCR) (NEGATIVE) Stl C. cayetanensis PCR Not Detected (Not Detected) Stool Rotavirus A PCR Not Detected (Not Detected) Stl Adenov F 40/41 PCR Not Detected (Not Detected) Stool Astrovirus (PCR) Not Detected (Not Detected) Stool Campylobacter PCR Not Detected (Not Detected) Stl C. diff Tox A/B PCR Not Detected (Not Detected) Stool Cryptosporidium PCR Not Detected (Not Detected) Stl Sh Tox Pr E STEC PCR Not Detected (Not Detected) Stool E coli O157 PCR Not applicable (Not Detected) Stl Enterotoxigenic E PCR Not Detected (Not Detected) Stool EPEC (PCR) Not Detected (Not Detected) Stl E. histolytica PCR Not Detected (Not Detected) Stool Giardia Lamblia PCR Not Detected (Not Detected) Stl P. shigelloides PCR Not Detected (Not Detected) Stool Salmonella PCR Not Detected (Not Detected) Stool Sapovirus (PCR) Not Detected (Not Detected) Stl Shigella/EIEC PCR Not Detected (Not Detected) St Y.enterocolitica PCR Not Detected (Not Detected) Stool Vibrio (PCR) Not Detected (Not Detected) Stl Vibrio cholerae PCR Not Detected (Not Detected) Stl Enteroaggr Ecoli PCR Not Detected (Not Detected) Stl Norovirus GI/GII PCR Not Detected (Not Detected) ABX Reporting Has patient been on IV antibiotics over the past 48 hours?: Yes Assessment/Plan Problem List (1) Acute hypoxic respiratory failure: Impression: Secondary to CAP. She has been on 1-2 L oxygen since admit. She feels that she would benefit from neb treatments, scheduled duonebs are QID. refused this morning at 10:09 on 11/14. Greatly improved lung sounds with residual lower lobe expiatory wheezes. (2) Pneumonia: Impression: Day 3/3 azithromycin, Day 3/5 Rocephin. She currently desaturates to 88% on RA. (3) Nausea vomiting and diarrhea: Impression: On a regular diet, ate most of her breakfast but states that she isn't as hungry as normal. Stool sample collected on 11/12 can back negative (-) for all tested pathogens. She states one very loose water stool early this morning and one semisolid stool in the late afternoon. Loperamide PRN ordered for continued loose stools. (4) Sleep apnea: Impression: She does not have functional sleep apnea treatment at this time. Replacement CPAP hose has been organized and order by RT 11/14 (5) Rheumatoid arthritis: Impression: Recent diagnosis in the last year or so rheumatoid arthritis. She is on meloxicam for this. Meloxicam is currently PRN as it can be irritating to the GI tract, last given on 11/12 (6) Depression: Impression: Longstanding depression on fluoxetine I have restarted her home medication of fluoxetine. I have spent more than 30 minutes in the care of this patient today over three visits throughout the day. This includes time [id number], review and ordering of diagnostic imaging and laboratory studies.. Monitoring the patient's signs symptoms, evaluation of medication effectiveness and patient's response to treatment. Documented by User: RAVINDRA Roldan 11/14/24 18:50 Objective Lab Results 11/14/24 05:13 11/14/24 05:13 Assessment/Plan Problem List (1) Acute hypoxic respiratory failure: (2) Pneumonia: (3) Nausea vomiting and diarrhea: (4) Sleep apnea: (5) Rheumatoid arthritis: (6) Depression:
[2024-11-14] MEDS: IPRATROPIUM/ALBUTEROL 3 ML NEB INH SCH (21:40)
[2024-11-15 05:55] LABS: BASOPHILS % (AUTO) 0.1 %; HCT - HEMATOCRIT 37.2 % (37.0-47.0); HGB - HEMOGLOBIN 12.1 g/dL (12.0-16.0); LYMPHOCYTES # (AUTO) 1.3 10^3/uL (1.5-3.5); LYMPHOCYTES % (AUTO) 14.4 %; MEAN CORPUSCULAR HEMOGLOBIN 28.9 pg (27.0-31.0); MEAN CORPUSCULAR HGB CONC 32.5 g/dL (32.0-36.0); MEAN PLATELET VOLUME 11.5 fL (7.9-10.8); MONOCYTES # (AUTO) 0.7 10^3/uL (0.0-1.0); MONOCYTES % (AUTO) 8.2 %; NEUTROPHILS # (AUTO) 6.8 10^3/uL (1.5-6.6); NEUTROPHILS % (AUTO) 76.4 %; PLT - PLATELET COUNT 215 10^3/uL (130-450); RED BLOOD COUNT 4.18 10^6/uL (4.20-5.40); RED CELL DISTRIBUTION WIDTH 13.4 % (12.0-15.0)
[2024-11-15 06:07] LABS: CALCIUM 9.4 mg/dL (8.5-10.3); CREATININE 0.6 mg/dL (0.6-1.3); POTASSIUM 3.9 mmol/L (3.5-4.5)
[2024-11-15 14:31] VITALS: BP 162/77; TEMP 98.1; O2SAT 92
--- NOTE | 2024-11-15 15:27 | Discharge Summary ---
Discharge Summary Admit Date: 11/12/24 Discharge Date: 11/15/24 Discharging Provider: Garrett Barbosa NP Primary Care Provider: Lucy Mason Code Status: Attempt Resuscitation DIAGNOSES Admission Diagnoses: Acute hypoxic respiratory failure Pneumonia, acute community-acquired Nausea, vomiting, diarrhea Central sleep apnea associated with atrial fibrillation Sleep apnea, obstructive Rheumatoid arthritis Discharge Diagnoses with Status of Each Condition: Acute hypoxic respiratory failure Resolved Pneumonia, acute community-acquired Active Nausea, vomiting, diarrhea Resolved Central sleep apnea associated with atrial fibrillation Chronic Sleep apnea, obstructive Chronic Rheumatoid arthritis Chronic HPI History of Present Illness: 63-year-old female with history of rheumatoid arthritis presents to the emergency department complaining of nausea vomiting and watery stools for several days now. She has been sick with a viral upper respiratory infection and coughing for several weeks now. She presented today because her nausea and vomiting was so severe. She has a past medical history of rheumatoid arthritis treated with meloxicam and sleep apnea. She has not been using her CPAP for the last 4 to 6 weeks because her dog chewed the hose She was seen in our emergency department for the same complaints 3 days ago. She was discharged to home with prescriptions for Zofran and promethazine. She cannot recall who her PCP is but in researching it she sees Lucy Mason at our [facility]. She endorses full CODE STATUS. HOSPITAL COURSE Hospital Course: Patient was admitted into the hospital. Chest x-ray was performed which showed right upper lung pneumonia. She was initiated on Rocephin and azithromycin. She finished her course of azithromycin, and finished 3 days of Rocephin. She was kept on Decadron for the duration of her hospitalization for her prior viral Upper respiratory symptoms. Today, she is on room air. Desaturation study was performed and she passed. She is being discharged to finish course of antibiotics and follow-up with her primary care provider in 2 weeks ALLERGIES Allergies Allergy/AdvReac Type Severity Reaction Status Date / Time No Known Drug Allergies Allergy Verified 11/12/24 12:59 MEDICATIONS Ambulatory Orders Medication Instructions Recorded Confirmed fluoxetine 40 mg capsule (Prozac) 40 mg PO DAILY 09/27/23 11/12/24 meloxicam 7.5 mg tablet 7.5 mg PO DAILY PRN Pain 1-4 #90 11/01/24 11/12/24 tabs ondansetron HCl 4 mg tablet 4 mg PO Q8H PRN nausea and 11/09/24 11/12/24 vomiting #10 tabs promethazine 25 mg tablet 25 mg PO TID PRN nausea and 11/09/24 11/12/24 vomiting #10 tabs amoxicillin 875 mg-potassium 1 tab PO BID 2 days #4 tabs 11/15/24 clavulanate 125 mg tablet dexamethasone 4 mg tablet 6 mg (1.5 x 4 mg) PO DAILY 2 days 11/15/24 #3 tabs guaifenesin 600 mg tablet, 600 mg PO BID 10 days #20 tabs 11/15/24 extended release 12 hr (Mucinex) PHYSICAL EXAM AT DISCHARGE General Appearance: positive No acute distress and Alert Eyes Bilateral: positive Normal inspection and PERRL ENT: positive No signs of dehydration Neck: positive No JVD Respiratory: positive Rhonchi Cardiovascular: positive Regular rate & rhythm Peripheral Pulses: positive 2+ Abdomen: positive Non-tender Skin: positive Color nml Extremities: positive Non-tender Neurologic/Psychiatric: positive Oriented x3 LABS 11/15/24 05:22 11/15/24 05:22 SEPSIS Possible source of Sepsis: Pulmonary FOLLOW UP Follow Up: With PCP TIME SPENT Time Spent in Discharge (Minutes): 25 Discharge Plan Discharge Patient Disposition: Home, Self Care Condition: Good Medically Cleared Date:: 11/15/24 Prescriptions: New guaifenesin [Mucinex] 600 mg Tablet Extended Release 12hr 600 mg PO BID 10 Days Qty: 20 0RF amoxicillin-pot clavulanate 875-125 mg tablet 1 tab PO BID 2 Days Qty: 4 0RF dexamethasone 4 mg Tablet 6 mg PO DAILY 2 Days Qty: 3 0RF Continued meloxicam 7.5 mg tablet 7.5 mg PO DAILY PRN (Reason: Pain 1-4) Qty: 90 0RF Patient Comments: take 1 tablet by mouth once daily with food Rx Instructions: please call and schedule a follow up fluoxetine [Prozac] 40 MG capsule 40 mg PO DAILY ondansetron HCl 4 mg tablet 4 mg PO Q8H PRN (Reason: nausea and vomiting) Qty: 10 0RF promethazine 25 mg tablet 25 mg PO TID PRN (Reason: nausea and vomiting) Qty: 10 0RF Activity Restrictions: No Restrictions Diet: Regular Health Concerns: You are a 63-year-old female who came in with nausea, vomiting, diarrhea. You were found to have a right upper lobe pneumonia. This pneumonia cause low oxygen levels, which is why you were held in the hospital. You were started on The antibiotics Rocephin and azithromycin for your community-acquired pneumonia. He finished your course of azithromycin, but I am sending you home with 2 more days of Augmentin 875 twice daily. I am also sending you home with Mucinex and some more steroid. I would like for you to take the steroid as directed until the bottle is empty, as well as the antibiotic until the bottle is empty. Mucinex can be continued until symptoms resolve or until the bottle is empty. Please call your provider if you start to have fevers, chills, worsening shortness of breath. I would like for you to follow-up with your primary care provider within 2 weeks Print Language: Mauritanian Patient Instructions: Pneumonia Stand Alone Forms: PCP List Follow-up Care: Lucy Mason PA [Primary Care Provider] -
[2024-11-15] MEDS ORDERED: AMOX/CLAV 875 MG/125 MG TABLET PO ONE (16:00)
== END 2024-11-15 16:38 | disposition home or self-care (01) | DRG 193 ==
LOC: MS2 12:50 → ED 12:50 → MS2 18:23
PROVIDERS: ADMIT Physician Assistant Medical; ATTEND Physician Assistant Medical
DX: Z59.89 Other problems related to housing and economic circumstances; J96.21 Acute and chronic respiratory failure with hypoxia; F32.A Depression, unspecified; Z91.198 Patient's noncompliance with other medical treatment and regimen for other reason; I48.91 Unspecified atrial fibrillation; E87.6 Hypokalemia; A41.9 Sepsis, unspecified organism; K52.9 Noninfective gastroenteritis and colitis, unspecified; J18.9 Pneumonia, unspecified organism; G47.37 Central sleep apnea in conditions classified elsewhere; M06.9 Rheumatoid arthritis, unspecified; Z79.899 Other long term (current) drug therapy